=== PATIENT | male | born 1940 | race Caucasian/White ===

== ENCOUNTER 2016-12-20 12:48 | Inpatient (IN) | payer MEDICARE, MEDICAID ==
[~2016-12-20] VITALS: Ht 180.3 cm; Wt 75.7 kg
[~2016-12-20 12:48] MED LIST: ASPI1TAB PO; ATOR1TAB18 PO; CARV12.5 PO; CLOP75TA2 PO; CORE12.5 PO; FERR325T3 PO; FURO20TA2 PO; HYDR-4267 PO; ISOS40TASA PO; LANTINJ4 SC; PANT40TA2 PO; SERT50TA PO; WARF-23 PO
[2016-12-20] MEDS ORDERED: ACETAMINOPHEN TAB 650MG DOSE (2X325MG) PO PRN (15:30)
[2016-12-20] MEDS ORDERED: ONDANSETRON 4MG/2ML VIAL (J2405) IV PRN (15:30)
[2016-12-20 18:26] VITALS: BP 152/75
[2016-12-20 19:07] LABS: BASO % 0.2 % (0.0-1.0); EOS % 0.1 % (0.0-3.0); LARGE UNSTAINED CELL % 0.3 % (0.0-4.0); LYMPH # 0.2 K/mm3 (1.5-4.5); LYMPH % 2.8 % (24.0-44.0); MEAN CORPUSCULAR HEMOGLOBIN 32.6 pg (27.0-33.0); MEAN CORPUSCULAR HGB CONC 33.4 g/dl (32.0-36.5); MEAN CORPUSCULAR VOLUME 97.7 fl (80.0-96.0); MONO # 0.3 K/mm3 (0.0-0.8); MONO % 3.9 % (0.0-5.0); NEUTROPHILS # 5.9 K/mm3 (1.8-7.7); NEUTROPHILS % 92.6 % (36.0-66.0); PLATELET COUNT, AUTOMATED 124 k/mm3 (150-450); RED CELL DISTRIBUTION WIDTH 15.4 % (11.5-14.5); WHITE BLOOD COUNT 6.4 K/mm3 (4.0-10.0)
[2016-12-20 19:14] LABS: INR 1.52
[2016-12-20] MEDS ORDERED: FUROSEMIDE 100 MG/10 ML VIAL (J1940) IV ONE (19:15)
[2016-12-20] MEDS ORDERED: DEXTROSE 50% 50 ML SYRINGE IV PRN (19:30)
[2016-12-20] MEDS ORDERED: GLUCAGON FOR INJ 1 MG VIAL (J1610) SC PRN (19:30)
[2016-12-20] MEDS ORDERED: GLUCOSE 4 GM CHEW TABLET PO PRN (19:30)
[2016-12-20] MEDS ORDERED: FURO20TA2 PO (19:34)
[2016-12-20] MEDS ORDERED: MECL-68 PO (19:34)
[2016-12-20] MEDS ORDERED: GLIM4TAB PO (19:34)
[2016-12-20] MEDS ORDERED: BYDU1INJ SC (19:34)
[2016-12-20] MEDS ORDERED: ONDA4TAB6 PO (19:35)
[2016-12-20 19:38] LABS: ALBUMIN 3.2 GM/DL (3.2-5.2); ALBUMIN/GLOBULIN RATIO 0.84 (1.00-1.93); BILIRUBIN,TOTAL 0.8 MG/DL (0.2-1.0); CALCIUM LEVEL 7.6 MG/DL (8.8-10.2); CREATININE FOR GFR 3.33 MG/DL (0.70-1.30); GLOMERULAR FILTRATION RATE 19.4 (>42); MAGNESIUM LEVEL 2.2 MG/DL (1.8-2.4); POTASSIUM SERUM 4.5 MEQ/L (3.5-5.1); THYROXINE (T4) 7.6 UG/DL (4.5-12.0)
[2016-12-20] MEDS ORDERED: CARV25TA PO (19:39)
[2016-12-20] MEDS: HEPARIN SOD (PORCINE) 5000 UNITS/ML VIAL SC SCH (21:00)
[2016-12-20] MEDS ORDERED: HEPARIN SOD (PORCINE) 5000 UNITS/ML VIAL SQ SCH (21:00)
[2016-12-20] MEDS: **hydrALAZINE** 50 MG TAB PO SCH (21:01)
[2016-12-20] MEDS: MECLIZINE 25 MG TABLET PO SCH (21:02)
[2016-12-20] MEDS: HumaLOG INSULIN (NovoLOG) PER UNIT SC SCH (21:02)
[2016-12-20] MEDS: SENOKOT S TAB PO SCH (21:02)
[2016-12-20] MEDS: CARVedilol 12.5 MG TAB PO SCH (21:03)
[2016-12-20] MEDS: ISOSORBIDE DINITRATE 40 MG PO SCH (21:14)
[2016-12-20 21:26] VITALS: BP 153/82
[2016-12-20 22:04] LABS: OSMOLALITY URINE 449 MOSM/KG (500-800)
--- NOTE | 2016-12-20 22:24 | HPE ---
DATE OF ADMISSION: 12/20/2016 PRIMARY CARE PHYSICIAN: Dr. Deni Lo. CHIEF COMPLAINT: The patient was transferred from [facility] due to abnormal renal function. HISTORY OF PRESENT ILLNESS: Mr. Chaudhry is a 76-year-old male with multiple past medical history who transferred from [facility] due to abnormal renal function. The patient expressed that two weeks ago, was seen by Dr. oL who has started the patient on Bydureon weekly and the first dosage was administered on Thursday two weeks ago. At night, he started having nausea and vomiting which continues for two weeks. The patient also noticed last Thursday that he started having blood in his vomit, possibly secondary to a long history of vomiting. He also experienced fatigue and weakness all over his body. One of the patient's neighbors suggested that the patient be seen by his doctor again. The patient saw Dr. Lo on Thursday, December 17. The patient expressed at that time his weakness and fatigue was so bad that he could not walk. Dr. Lo recommended that the patient be admitted to the hospital. The patient denies having sick contacts. He also noticed that his urine output has decreased for the past two weeks. The patient denies fever; however, the patient has chills and night sweats. The patient denies syncope or seizure-type activity. At the [facility] the patient was diagnosed with acute kidney injury on chronic kidney disease stage III, and was thought that it was mostly secondary to prerenal due to side effect of Bydureon, which caused him to have vomiting and nausea, which led to volume depletion. No hydronephrosis or hydroureter was reported on the imaging that was performed at [facility]. However, the imaging suggested pancreatitis. However, lipase and amylase were not elevated. It was noted that the patient has proteinuria and hematuria at [facility]. The patient also had mild hyperkalemia and slightly low CO2 which was thought consistent with metabolic acidosis. Therefore, the patient was started on half-normal saline, and bicarbonate at 37 mL per hour, with close monitoring of cardiorespiratory due to low ejection fraction, and continued monitoring for urine output. At [place], urine electrolytes and urine protein over creatinine ratio was thought to qualifying him for proteinuria. The creatinine level at [place] was reported as between 3 to 3.1. The patient also had anemia which, according to documentation, could be related to renal disease. Also, according to the [facility] documentation, since the patient was on hydralazine, they have ordered antinuclear antibody test (VANDA), double-stranded deoxyribonucleic acid (DNA), antihistamine antibody, C3, C4, serum protein electrophoresis (SPEP) and urine protein electrophoresis (UPEP), and serum and urine free light chain, LDH, and peripheral smear and ANCA due to possible drug- induced lupus. Due to mild anemia and thrombocytopenia, they have ordered lactate dehydrogenase (LDH) and peripheral smear, and the results were pending. The patient was transferred to [facility] for nephrology followup. PAST MEDICAL HISTORY: 1. Type 2 diabetes mellitus. 2. Hypertension. 3. Coronary artery disease, status post coronary artery bypass graft (CABG) and stents. 4. History of pacemaker. 5. History of atrial fibrillation. 6. History of severe hyperlipidemia. 7. History of chronic kidney disease (CKD) stage III. 8. History of gastrointestinal (GI) bleeding. 9. Inferior wall myocardial infarction (RI) complicated by cardiogenic shock. 10. Peripheral vascular disease (PVD). 11. Ejection fraction about 30-35% which was done by Dr. Lo; however, no echo report has been sent from [place]. PAST SURGICAL HISTORY: 1. Coronary artery bypass graft (CABG). 2. Spinal fusion surgery. 3. History of esophagogastroduodenoscopy (EGD). ALLERGIES: No known drug allergies. HOME MEDICATIONS: - aspirin 81 mg by mouth daily - carvedilol 25 mg by mouth twice a day - Bydureon 2 mg subcutaneously every week - furosemide 20 mg by mouth daily - glimepiride 4 mg by mouth daily - hydralazine 50 mg by mouth twice a day - isosorbide dinitrate 40 mg by mouth twice a day - meclizine 25 mg by mouth twice a day - ondansetron 4 mg by mouth twice a day as needed for nausea SOCIAL HISTORY: At this time, the patient lives alone. The patient's about 7-1/2 years ago due to complications of cancer. The patient has one dog. The patient denies history of smoking or drinking alcoholic beverages. However, the patient expressed that his last drink was 60 years ago, and he reported he was drinking occasionally. The patient denies illicit drug use. The patient has traveled to [place]. The patient had two sons who have been lost due to [place] war. The patient lost one daughter due to driving under the influence (DUI). FAMILY HISTORY: The patient had one sister who is on dialysis due to end-stage renal disease. She about a year ago. The reason for her renal disease was uncontrolled hypertension. The patient has another sister. The patient's father at age 51 due to heart issues. The patient's mother at age 94 due to heart issues. REVIEW OF SYSTEMS: GENERAL: The patient denies fever, chills, night sweats, weight loss, weight gain. HEENT: The patient at this time denies acute vision or hearing changes. However, the patient expressed that for the past week to two weeks, the patient feels mild change of the vision and lightheadedness, especially after having multiple episodes of vomiting. The patient denies problems with chewing food or sinusitis. NECK: The patient denies lumps, bumps, or decreased range of motion of his neck. HEART: The patient denies chest pain, palpitations, racing or skipping heartbeat. LUNGS: The patient denies shortness of breath, coughing or wheezing. ABDOMEN: The patient denies abdominal pain, nausea, vomiting, diarrhea or constipation, melena, hematochezia, hemoptysis for the past 24 hours. However, before that, the patient had nausea and multiple vomiting per day for the past two weeks. NEUROLOGIC: The patient denies history of transient ischemic attack (TIA), cerebrovascular accident (CVA) or seizure-type activity. PHYSICAL EXAMINATION: VITAL SIGNS: Temperature 97, pulse 74, respiratory rate 18, blood pressure 152/75, pulse oximetry 95 on room air. GENERAL APPEARANCE: The patient was lying in bed in no acute distress. The patient was awake, alert, and oriented to person, place and time. HEENT: Normocephalic, atraumatic. Pupils are equal, reactive to light. Oral mucosa was moist. NECK: Soft, supple. No lymphadenopathy, no thyromegaly. The patient has mild elevation of jugular venous distention (JVD). HEART: Regular rate and rhythm. Normal S1, S2. ABDOMEN: Soft, nontender. Positive bowel sounds in all quadrants. EXTREMITIES: The patient has mild pitting edema in both lower extremities, +2 pulses in both lower extremities. Feet are warm. NEUROLOGIC: Cranial nerves II through XII are intact. No focal deficiencies. LABORATORY DATA: White blood cells 6.4, red blood cells 3.14, hemoglobin 10.2, hematocrit 30.7, MCV 97.7, MCH 32.6, MCHC 33.4, RDW 15.4, platelet count 124, neutrophils percentage 92.6, lymphocyte percentage 2.8, monocyte percentage 3.9, basophil percentage 0.1, eosinophil percentage 0.2, leukocyte percentage 0.3. PT 18.4, INR 1.52. Sodium 133, potassium 4.5, chloride 101, carbon dioxide 23, anion gap 9, BUN 49, creatinine 3.33, glomerular filtration rate 19.6, fasting glucose 313. Lactic acid 2.1. Calcium 7.6, magnesium 2.2. Total bilirubin 0.8, AST 49, ALT 119, alkaline phosphatase 83. Total creatine kinase 288, CK-MB 13.5, CK-MB relative index 4.68, troponin I 1.23. C-reactive protein 2.49. BNP pending. Total protein 7, albumin 3.2, lipase 139. TSH 1.15. Free T4 index 2.9. Thyroxine 7.6, T3 uptake 38. IMAGING: Chest x-ray is pending at this time. CT of chest without contrast, which was done on 12/17/2016, at [facility], indicated there is interstitial fibrotic change and heaviest fibrosis in the base, with a left pleural effusion, small lateral and posterior pleural plaque, and diaphragmatic plaque on the right and some mild cylindrical bronchiectasis changes. No definite acute infiltrate. Cardiomegaly with the left atrial and ventricle enlargement, dual-lead pacer, and no pericardial thickening or effusion. All of this is unchanged. Spine, rib, clavicles, scapula and sternum without acute fracture. There is a prior sternotomy, calcified aorta without aneurysm. No pathologic size adenopathy in mediastinum. CT abdomen and pelvis without contrast which was done on 12/17/2016, at [facility], which indicated there is evidence of inflammatory changes adjacent to the body tail of the pancreas, representing some pancreatitis without pseudocyst or abscess. No perforation/free air. Thick wall calcified rimmed cyst in the spleen, unchanged, and thin-walled lesion between the wall of the stomach and the tail of the pancreas that may be arising from the gastric wall. It appears unchanged for each of these lesions. Dependent gallstone and the kidney without acute finding. There is adrenal hyperplasia bilaterally. No splenomegaly. Vascular calcification of the aorta and branches without changes. There is aneurysmal dilation of the distal abdominal aorta to 3.7 cm in AP diameter, and this is unchanged from the previous study. Dextroconvex scoliosis with degenerative disc and facet changes and some hip arthritis. PA and lateral chest which was done on 12/19/2016, at [facility], which indicated cardiomegaly with underlying interstitial fibrosis, chronic calcified pleural plaque and pleural thickening and a small effusion. Chest x-ray which was done on 12/20/2016, at [facility] was compared with the 12/19/2016, and the CT of the chest which was done on 12/17/2016, at [facility], which indicated multiple pacer is again seen and unchanged. The aorta is mildly enlarged. There is diffuse interstitial fibrotic changes and some vascular redistribution with pulmonary venous hypertension, underlying fibrosis, mixed interstitial edema difficult to exclude, and suspecting some interstitial edema present. There is a small effusion on the lateral view and fluid in the fissure. Vascular congestion and interstitial edema appear greater than the day before. No other finding or changes were noticed. ASSESSMENT AND PLAN: 1. Acute kidney injury superimposed on chronic kidney disease (CKD). The patient has been diagnosed with stage III kidney disease at [place]. The patient's creatinine was between 3.1 and 3; however, today's lab work which was done at [facility] indicated elevation of the creatinine to 3.33. This could be secondary to pre azotemia (cardio-nephrotic effect since the patient has heart failure, reduced ejection fraction (30-35% based on the record from [place] which was done by Dr. Lo) versus azotemia (medications including furosemide). At this time, physical examination indicated possibility of hypervolemia; therefore, we administered one dose of Lasix 60 mg intravenous (IV) one time, and we will evaluate the patient's intake and output. we will also consult Dr. Medina. Also, we have ordered potassium random urine, sodium random urine, as well as total protein random urine and osmolarity urine, as well as creatinine random urine and chloride random urine, and the result is pending at this time. However, the patient had elevated urine creatinine which was done on 12/19/2016, and was 139.2, and elevated protein urine which was done 12/19/2016, which was 358. 2. Hyponatremia. This is possibly secondary to heart failure, reduced ejection fraction versus IV fluid that the patient has received during hospitalization at [place]. At this time, we administered one dose of Lasix 60 mg IV. We will monitor patient's sodium level. 3. Mild elevation of lactic acid. The patient is afebrile, and has normal level of white blood cells. This is possibly secondary to stress; however, we have ordered blood culture and the result is pending at this time. 4. Elevated troponin level. This is possibly secondary to acute on chronic kidney disease. The patient is asymptomatic at this time. The patient is on aspirin. We have ordered a chest x-ray. Result is pending at this time. Electrocardiogram (EKG) which was done on December 17 indicated sinus rhythm with a first-degree arteriovenous (AV) block and left ventricular hypertrophy. However, no ST changes was noted. We will recheck the cardiac marker for two more readings every eight hours. The patient is also on carvedilol. 5. History of atrial fibrillation. At this time, the patient's rate is controlled. The patient is on aspirin 81 mg by mouth daily, as well as Coreg 25 mg twice a day by mouth. The patient expressed that he was on warfarin; however, his commissions specialist (Dr. Lo) stop warfarin possibly secondary to history of gastrointestinal (GI) bleeding. 6. Hypertension. At this time, the patient is on Coreg, as well as hydralazine and isosorbide dinitrate, with the holding parameters. 7. Deep venous thrombosis (DVT) prophylaxis. 5000 subcutaneous twice a day. 8. Transaminitis. The patient today has elevated AST and ALT. However, based on documentation from [facility], the patient has normal level of AST and ALT on 12/17/2016. This could be secondary to cardiohepatic effect due to hypervolemia. At this time, we will monitor the patient's liver function. If transaminitis continues, the patient might require to have further evaluation including hepatic ultrasound. 9. Heart failure, reduced ejection fraction. The latest echocardiogram result that we have from [place] indicated reduced ejection fraction of about 30-35%, which was done by Dr. Lo. However, the date of this study is not indicated. We have ordered new echocardiogram and the result is pending at this time. At home, the patient was on furosemide; however, we have hold it and we have started the patient on Lasix at 60 mg IV one time. Also, the patient is on Coreg 25 mg by mouth twice a day. 10. History of gastrointestinal (GI) bleeding. The patient has anemia. However, hemoglobin and hematocrit levels today have increased compared to the lab which was done at the [facility]. I have ordered occult blood test and the result is pending at this time. This could be secondary to hypervolemia. We will continue to monitor patient for any abnormal symptoms. 11. Coronary artery disease. The patient is status post coronary artery bypass graft (CABG) and stent. The patient also has a history of pacemaker. At this time, we will continue patient on aspirin and beta cynthia. 12. Dizziness. The patient has a chronic history of dizziness. The patient is on meclizine 25 mg by mouth twice a day, which is the home dosage. 13. Diabetes: At home patient is on Glimepiride however we has stop this medication and have started him on sliding scale and consistent carb diet. My preceptor for this patient encounter was Dr. Tia Dumas. The preceptor was physically present in the building during the encounter and was fully available as needed. All aspects of the patient interview, examination, medical decision making process, and medical care plan development were reviewed and approved by the preceptor. The preceptor is aware and concurs with the plan as stated in the body of this note and will attest to such by his/her co-signature. MAGALY
[2016-12-20 23:59] VITALS: BP 138/76
[2016-12-21] MEDS ORDERED: SLF 3 ML SYR IV PRN (03:45)
[2016-12-21 04:31] VITALS: BP 130/74
[2016-12-21] MEDS: SLF 3 ML SYR IV SCH ×3 (05:00→21:57)
[2016-12-21 05:44] LABS: BASO % 0.1 % (0.0-1.0); EOS % 0.1 % (0.0-3.0); LARGE UNSTAINED CELL # 0.1 K/mm3 (0.0-0.4); LYMPH # 0.2 K/mm3 (1.5-4.5); LYMPH % 2.4 % (24.0-44.0); MEAN CORPUSCULAR HEMOGLOBIN 32.3 pg (27.0-33.0); MEAN CORPUSCULAR HGB CONC 33.5 g/dl (32.0-36.5); MEAN CORPUSCULAR VOLUME 96.3 fl (80.0-96.0); MONO # 0.4 K/mm3 (0.0-0.8); MONO % 4.8 % (0.0-5.0); NEUTROPHILS # 7.6 K/mm3 (1.8-7.7); NEUTROPHILS % 91.6 % (36.0-66.0); PLATELET COUNT, AUTOMATED 117 k/mm3 (150-450); RED CELL DISTRIBUTION WIDTH 15.8 % (11.5-14.5); WHITE BLOOD COUNT 8.3 K/mm3 (4.0-10.0)
[2016-12-21 06:06] LABS: ALBUMIN 2.9 GM/DL (3.2-5.2); ALBUMIN/GLOBULIN RATIO 0.83 (1.00-1.93); BILIRUBIN,TOTAL 0.7 MG/DL (0.2-1.0); CALCIUM LEVEL 7.8 MG/DL (8.8-10.2); CREATININE FOR GFR 3.08 MG/DL (0.70-1.30); GLOMERULAR FILTRATION RATE 21.2 (>42); MAGNESIUM LEVEL 2.2 MG/DL (1.8-2.4); POTASSIUM SERUM 4.1 MEQ/L (3.5-5.1); TOTAL PROTEIN 6.4 GM/DL (6.4-8.2)
[2016-12-21 07:36] VITALS: BP 126/69
--- NOTE | 2016-12-21 08:22 | REP ---
AP CHEST: 12/20/2016 at 07:37 PM. CLINICAL HISTORY: Dyspnea. COMPARISON: 12/20/2016, 12/19/2016; CT chest 12/17/2016. FINDINGS: A multi-lead pacer unchanged. Cardiomegaly noted. The aorta is tortuous and calcified. Sternotomy wires as before. There appears to be some improvement in the vascular congestion and interstitial edema from earlier today. Some of this may be related to technical differences in the examination, but nevertheless, there does appear to be some improvement. A small left effusion is noted. Calcified pleural plaques and pleural thickening along the right lateral chest. No other change. Signed by Stanislav Polanco MD 12/21/2016 10:37 A
[2016-12-21] MEDS: ISOSORBIDE DINITRATE 40 MG PO SCH ×2 (08:32→21:56)
[2016-12-21] MEDS: HEPARIN SOD (PORCINE) 5000 UNITS/ML VIAL SC SCH ×2 (08:33→21:55)
[2016-12-21] MEDS: MECLIZINE 25 MG TABLET PO SCH ×2 (08:33→21:57)
[2016-12-21] MEDS: CARVedilol 12.5 MG TAB PO SCH ×2 (08:33→21:56)
[2016-12-21] MEDS: **hydrALAZINE** 50 MG TAB PO SCH ×2 (08:33→21:56)
[2016-12-21] MEDS: ASPIRIN 81 MG ENTERIC TAB PO SCH (08:33)
[2016-12-21] MEDS: SENOKOT S TAB PO SCH ×2 (08:33→21:57)
[2016-12-21] MEDS: HumaLOG INSULIN (NovoLOG) PER UNIT SC SCH ×4 (08:34→21:00)
[2016-12-21] MEDS ORDERED: FUROSEMIDE 100 MG/10 ML VIAL (J1940) IV SCH ×2 (09:00→17:00)
--- NOTE | 2016-12-21 09:31 | REP ---
BILATERAL RENAL ULTRASOUND AND BLADDER ULTRASOUND: 12/20/2016. COMPARISON: CT 12/17/2016. CLINICAL HISTORY: Abnormal renal function. FINDINGS: Sonographic evaluation of the kidneys shows the right 12.7 x 5.8 x 5.2 cm. The left kidney measures 12 x 5.3 x 5.1 cm. Cortical echogenicity is the same or less than the adjacent liver, which may reflect normal early medical renal disease. There is cortical thinning and sinus lipomatosis related to that cortical atrophy. Similarly on the left, there is cortical thinning and sinus lipomatosis. No hydronephrosis, hydroureter, solid or cystic mass or perinephric fluid. I see no definite stone. The bladder is only minimally filled measuring 5.8 x 6 x 3 cm giving calculated volume of 54 mL. Ureteral jets could not be observed. No bladder wall mass, stone or other significant finding. IMPRESSION: 1. Bilateral kidney length is normal with cortical thinning and sinus lipomatosis noted consistent with atrophy. Cortical echogenicity is the same or slightly lower than the adjacent liver. This may be normal versus early medical renal disease. 2. No hydronephrosis, hydroureter, renal, ureteral stone, cyst or solid renal mass visible. 3. Limited evaluation of the bladder only partially filled for this examination with volume of 54 mL. No stone, bladder wall thickening or ureteral jets observed. Signed by Stanislav Polanco MD 12/21/2016 10:56 A
--- NOTE | 2016-12-21 10:29 | ECHO ---
DATE OF PROCEDURE: 12/21/2016 REFERRING PROVIDER: Dr. Tia Dumas LOCATION: Room 3212 REASON FOR ECHOCARDIOGRAM: Shortness of breath. 2D MEASUREMENT: IVS - 1.4 cm LV - 4.7 cm LVPW - 1.1 cm LA - 3.8 cm Aorta - 2.1 cm IVC - 2.7 cm DOPPLER MEASUREMENT: Peak velocity across the aortic valve - 1.4 m/s Peak velocity across the LVOT - 0.69 m/s Mitral E - 0.97 Maximum tricuspid valve velocity - 3.4 m/s 2D COMMENTS: 1. Normal left ventricular size and wall thickness but with a moderately depressed global left ventricular systolic function. The anterior septum, mid to apical region appeared to be akinetic as well as the mid and the apical portion of the anterior wall and the anterolateral wall. The estimated global left ventricular systolic ejection fraction is 35%. The basal portion of the septum and the anterior wall as well as the inferior wall seem to be lucian. 2. Subjectively, the left atrium appeared to be mildly enlarged. Normal right atrium. The right ventricle appeared to be normal in limited views. The right ventricular free wall was not well visualized. 3. The atrial septum appeared to be normal without evidence of defect or shunt. 4. Normal aortic root. 5. Trace pericardial effusion noted, no evidence of cardiac tamponade. 6. Mildly calcified aortic valve with normal leaflet excursion. Mildly calcified mitral annulus shows normal anterior mitral valve leaflet motion. Normal tricuspid valve. The pulmonic valve and proximal pulmonary artery branches were not well visualized. 7. The inferior vena cava appeared to mildly enlarged, central venous pressure is probably elevated. DOPPLER: It detects mild to moderate aortic regurgitation, mild mitral regurgitation, moderate tricuspid regurgitation and trace pulmonic regurgitation. The calculated pulmonic artery systolic pressure varies between 50-60 mmHg. Assessment of the left ventricular systolic function was limited. The patient appeared to have underlying atrial fibrillation but with paced beats. IMPRESSION: 1. Moderate global left ventricular systolic dysfunction with regional wall motion abnormalities consistent with history of ischemic cardiomyopathy. 2. Aortic valve sclerosis with mild to moderate aortic regurgitation but no aortic stenosis. 3. Mitral annulus calcification with mild mitral regurgitation. 4. Moderate tricuspid regurgitation with moderate to severe pulmonary hypertension. 5. Pacemaker wire artifact noted, probably a biventricular pacemaker. 6. This was compared with the last echocardiogram on 03/29/2015, left ventricular systolic function was then normal. MTDD
[2016-12-21 12:00] VITALS: BP 131/71
--- NOTE | 2016-12-21 12:55 | CR ---
DATE OF CONSULTATION: 12/21/2016 PRIMARY CATH LAB TECHNOLOGIST AND PRIMARY PHYSICIAN: Dr. Chad Lo REFERRING PROVIDER: Dr. Dumas REASON FOR CONSULT: Abnormal serum troponin. HISTORY OF PRESENT ILLNESS: 76-year-old male who was transferred from [facility] yesterday, , because of acute on chronic renal failure. He was found to have an abnormal serum troponin and cardiology consult was called. When I saw Mr. Niles Chaudhry this morning, he was in bed in no acute distress at rest. He denies any chest pain, shortness of breath or palpitations. He has been ambulating. He stated that he was started on a medication for his diabetes and for about two weeks he was having nausea and vomiting. Then, he went to the hospital for further evaluation. He denies any abdominal pain or chest pain as mentioned above. He has been doing well and he stated since in this hospital, he has also has been feeling fine and ambulating on the floor. He has no nausea, vomiting diarrhea, melena or hematemesis. He has no cough or hemoptysis. He denies any active bleeding. He has no focal manifestation. He gives past medical history positive for coronary artery disease with myocardial infarction, cardiogenic shock, percutaneous transluminal coronary angioplasty (PTCA)/multiple stents, and coronary artery bypass graft (CABG). He also was told in the past that his heart muscles were weak. He has a history of atrial fibrillation that has been chronic and persistent and in the past he was on Coumadin, but discontinued it because of severe bleed that required transfer to the [facility] where he had multiple blood transfusions. He also had history of hypertension, hyperlipidemia, diabetes mellitus, peripheral artery disease with right carotid endarterectomy, gastroesophageal reflux disease (GERD), and chronic kidney disease Stage III. His first labs on admission revealed elevated liver enzymes that are improving. There is no history of CVA, sudden cardiac , thyroid disorders or lung disease that he is aware of. Past surgical history is positive for coronary artery bypass graft, permanent pacemaker implantation, and surgery done on his spine. Home medications are aspirin 81 mg by mouth daily, carvedilol 25 mg by mouth twice a day, Bydureon 2 mg subcutaneous weekly, furosemide 20 mg by mouth daily, glimepiride 4 mg by mouth daily, hydralazine 50 mg by mouth twice a day, isosorbide dinitrate 40 mg by mouth twice a day, meclizine 25 mg by mouth twice a day, and ondansetron 4 mg by mouth twice a day as needed for nausea. Current medications are aspirin 81 mg by mouth daily, Humalog as directed, carvedilol 25 mg by mouth twice a day, hydralazine 50 mg by mouth twice a day, isosorbide dinitrate 40 mg by mouth twice a day, meclizine 25 mg by mouth twice a day, heparin subcutaneous 5000 units every 12 hours, Glucagon 1 mg subcutaneous as directed, glucose tablets 16 grams by mouth as directed, D50 25 mL IV as directed, Tylenol 650 mg every 4 hours as needed for mild pain or fever, ondansetron 4 mg every 6 hours as needed IV for nausea or vomiting and he also had received a dose of Lasix yesterday, 12/20/2016. Family history is positive for heart disease. Social History: The patient lives in the [facility] and he denies any smoking or ETOH abuse. He has no known drug allergies. On physical examination, the patient is alert and oriented, in no acute distress at rest. His last vital signs revealed a blood pressure of 126/69 with a pulse of 70, respirations 18 and his maximum temperature is 98.1 degrees Fahrenheit with an oxygen saturation of 92-98% on room air. He has a fluid balance so far for today of 890 mL. Examination of the head is atraumatic. Neck is supple. I could not appreciate any jugular venous distention (JVD). The lungs did not reveal any wheezing or crackles. The heart examination revealed normal S1 and S2 without gallops. The PMI is displaced inferiorly and laterally. There is no rub. I could not appreciate any murmurs. Abdomen is soft, nontender. Bowel sounds are present. Extremities reveal no pedal edema. Peripheral pulses are palpated. Neurological examination grossly is negative for focal deficit. Labs: BMP done today revealed a sodium of 135, potassium 4.1, chloride 103, CO2 26, BUN 51, creatinine 3.08, GFR 21.2, fasting glucose 201, and calcium 7.8. Serum magnesium is 2.2. Liver enzymes revealed a total bilirubin of 0.7, AST 32 , ALT 92, alkaline phosphatase 70, and total protein 6.4, albumin 2.9. Serum troponin was 1.23 on 12/20/2016 and today 12/21/2016 serum troponin is 1.52. BNP today is now 122. Serum for BMP is pending. Liver enzymes on admission here were mildly elevated at AST 49 and ALT 118 respectively. CBC revealed a WBC of 8.3, hemoglobin 9.0, hematocrit 26.9, and platelets 117,000. On admission, the CBC revealed a WBC of 6.4, hemoglobin 10.2, hematocrit 30.7 and platelets 124,000. PT 18.4 with an INR of 1.52. Urinalysis revealed +3 protein, +2 glucose, +1 blood, and trace ketones, RBCs also noted. Blood culture is pending. Chest x-ray on admission, 12/20/2016 revealed cardiomegaly, tortuous and calcified aorta and blunting of the left costophrenic angle. There is also increased markings. Renal ultrasound was done yesterday, 12/20/2016, and revealed no hydronephrosis, hydroureter, stones, cysts, or solid mass in the kidneys. Some atrophy of the kidneys were noted. The bladder was not well visualized, but no stone detected. Echocardiogram done this morning revealed a moderately depressed global left ventricular systolic dysfunction with regional wall motion abnormalities consistent with ischemic cardiomyopathy, mild to moderate aortic regurgitation, mild mitral regurgitation, moderate tricuspid regurgitation with moderately severe pulmonary hypertension. In 2014, left ventricular systolic function by echocardiogram was normal, done in this hospital. IMPRESSION: 1. Abnormal serum troponin in this 76-year-old male with extensive cardiac history, but with underlying acute kidney injury on chronic kidney disease. The patient is asymptomatic and is active and ambulating. The etiology of the elevated serum troponin is not quite clear. His medications will be reviewed and I will continue the same for now, on a beta cynthia as well as a baby aspirin. He was on a statin in the past, but he stated that he was told that he does not need it. He will benefit and I am going to repeat his lipid profile and liver enzymes and if the liver enzymes continue to improve, he should be on a statin. He also has underlying peripheral artery disease. I am not going to add Plavix or BRILINTA for this present time because of his anemia and history of severe bleed requiring multiple transfusions of packed red blood cells in the past. Further evaluation for his elevated serum troponin can be done as an outpatient upon discharge. He is not a good candidate at this present time for cardiac catheterization in view of his renal function. He is also asymptomatic. 2. Cardiomyopathy, most likely ischemic in nature and well compensated and will continue with the beta cynthia as well as the combination of long acting nitrate and the hydralazine. However, we need to be careful with the hydralazine in view of his underlying CAD. 3. Acute kidney injury on underlying chronic kidney disease and this is being addressed. 4. Anemia. He will need to be monitored. He also has a low platelet count and he is on subcutaneous heparin and he will also need to be monitored. 5. History of atrial fibrillation, chronic and persistent, but not on Coumadin, stopped because of severe bleeding requiring multiple blood transfusions. At that time, he stated that he was admitted and he was transferred to [place] and he was discharged to rehabilitation but not home. 6. Diabetes mellitus. This is being addressed. 7. Hypertension, under control. 8. Hyperlipidemia. In the past, the patient was on a statin. This will be reassessed while in the hospital. He would benefit. 9. History of permanent pacemaker implantation. No information available at this present time, even from patient. He has left his pacemaker card at home. We should try to get some information from Dr. Lo's office tomorrow, 12/22/2016. ADDENDUM: Electrocardiogram done on 12/20/2016 revealed ventricular pacemaker activity, intraventricular conduction defect (IVCD), and nonspecific ST-T abnormalities. It was a pleasure to participate in the care of Mr. Niles Chaudhry for his underlying cardiac condition. He appears to be stable from a cardiac point of view and will continue current management. MTDD
--- NOTE | 2016-12-21 15:00 | IPN ---
DATE OF SERVICE: 12/21/2016 The patient seen and examined. Reported improved respirations, improved dyspnea on exertion. Overnight cardiac enzymes were elevated. Consulted Dr. Mishra. Denies any chest pain, pressure or discomfort. Electrocardiogram (EKG) shows ventricular pacing. Report of aspiration much improved. Denies any nausea, vomiting or abdominal pain. Tolerating oral. No edema whatsoever in lower extremities. Denies any fever or chills. Vital Signs: Temperature 97.4, pulse 72, respirations 18, blood pressure 131/71, pulse oximetry 96% on room air. Laboratory: WBC 8.3, hemoglobin and hematocrit 9 over 26.9 and platelets 117. Chemistry with sodium 135, potassium 4.1, chloride 103, bicarbonate 26, BUN 51, creatinine 3, troponin 1.13 to 1.52 to 1.09. Physical Examination: General: The patient alert and oriented times three in no acute distress, comfortable. HEENT: Normocephalic, atraumatic. Neck positive for jugular venous distention (JVD). Pulmonary: Diminished breath sounds bilateral. Cardiac: Regular rate and rhythm. Normal S1, S2. Abdomen soft, obese, nontender. Positive bowel sounds. Extremities: No edema of bilateral lower extremities. Assessment and Plan: This is a 76-year-old male patient with underlying medical history of ischemic cardiomyopathy with ejection fraction of 30-35%, type 2 diabetes, coronary arterial disease with coronary artery bypass graft (CABG) and stent, hypertension, pacemaker, atrial fibrillation, dyslipidemia, chronic kidney disease (CKD) stage III, history of gastrointestinal (GI) bleed, myocardial infarction ([place]) with cardiogenic shock, peripheral vascular disease, transferred from [facility] for acute on chronic renal failure as well as acute congestive heart failure (CHF) exacerbation with systolic dysfunction. Problems: 1. Acute on chronic renal failure likely cardiorenal. Kidney function improved with Lasix. Nephrology consulted. Followup urine studies. Ultrasound renal appreciated. Continue to monitor electrolytes. Strict ins and outs and daily weight. 2. Acute on chronic systolic heart failure. Consulted cardiology. Echo appreciated. Ejection fraction 35%. Trend cardiac enzymes. Strict ins and outs and daily weight. Continue Lasix 60 IV twice a day. Continue aspirin and beta blockers. Monitor blood pressure. 3. Elevated troponin likely secondary to acute congestive heart failure exacerbation in the setting of renal insufficiency and severe ischemic cardiomyopathy. Consulted Dr. Mishra. Given underlying anemia and GI bleed history, Dr. Mishra believes that patient likely will not tolerate escalation of antiplatelets or anticoagulation. Will keep the patient on aspirin and beta blockers. Continue diuresis. Telemetry close monitor. Monitor blood pressure. Monitor hemoglobin and hematocrit, transfuse as needed. Follow up cardiology recommendation. Echo is appreciated. Cardiac enzymes have peaked and trending down. 4. History of atrial fibrillation, currently the patient is ventricular paced on telemetry. Continue beta blockers. Anticoagulation has been discontinued for GI bleed. 5. Hypertension. Continue hydralazine, Coreg, isosorbide dinitrate with holding parameters. Continue to monitor. 6. Dyslipidemia. Restarting statin once lipid function has improved. 7. Diabetes. Insulin as per protocol. Follow finger sticks. 8. Peripheral vascular disease. Continue aspirin. 9. Anemia. Monitor hemoglobin and hematocrit. 10. History of GI bleed. If patient's anemia worsens, will consider further workup. 11. Deep vein thrombosis (DVT) prophylaxis. Heparin subcutaneous. DISPOSITION: Pending physical therapy, clinical improvement, cardiology and nephrology followup.
[2016-12-21 16:00] VITALS: BP 144/72
[2016-12-21 20:31] VITALS: BP 136/68
[2016-12-21] MEDS: POTASSIUM CHLORIDE 10 MEQ SR TABLET PO SCH (21:59)
[2016-12-22 00:50] VITALS: BP 133/68
--- NOTE | 2016-12-22 01:03 | ECGEPIP ---
Stationary ECG Study [facility] Test Date: 2016-12-20 Pat Name: PRESTON SALCEDO Department: PCU Room: [place] [address] Gender: M Instructor Of Sociology: SPEEDY : 1940 Requested By: JYOTSNA SRINIVASAN Order Number: [id number] Reading MD: Sarwat Mishra Measurements Intervals [place] Rate: 82 P: -9 SD: 229 QRS: -2 QRSD: 174 T: 163 QT: 463 QTc: 543 Interpretive Statements ELECTRONIC VENTRICULAR PACEMAKER Last tracing on 03/18/2015 at 17:11:52, there is now artifact in the anterolateral leads otherwise no significant changes Electronically Signed On 12-22-2016 1:03:27 EDT by Sarwat Mishra
--- NOTE | 2016-12-22 01:05 | ECGEPIP ---
Stationary ECG Study [facility] Test Date: 2016-12-21 Pat Name: PRESTON SALCEDO Department: Room: [place] [address] Gender: M [employer] Software Developer: BETH : 1940 Requested By: JYOTSNA SRINIVASAN Order Number: [id number] Reading MD: Sarwat Mishra Measurements Intervals [place] Rate: 85 P: 40 VA: 274 QRS: -11 QRSD: 203 T: 154 QT: 484 QTc: 576 Interpretive Statements ELECTRONIC VENTRICULAR PACEMAKER ABNORMAL RHYTHM ECG Compared to the last 2 tracings in the system, no significant changes Electronically Signed On 12-22-2016 1:05:02 EDT by Sarwat Mishra
[2016-12-22 04:34] VITALS: BP 132/70
[2016-12-22 05:04] LABS: BASO % 0.2 % (0.0-1.0); EOS # 0.1 K/mm3 (0.0-0.50); EOS % 0.7 % (0.0-3.0); LARGE UNSTAINED CELL # 0.1 K/mm3 (0.0-0.4); LARGE UNSTAINED CELL % 0.8 % (0.0-4.0); LYMPH # 0.6 K/mm3 (1.5-4.5); MEAN CORPUSCULAR HEMOGLOBIN 32.5 pg (27.0-33.0); MEAN CORPUSCULAR HGB CONC 33.1 g/dl (32.0-36.5); MEAN CORPUSCULAR VOLUME 98.2 fl (80.0-96.0); MONO # 0.5 K/mm3 (0.0-0.8); MONO % 6.8 % (0.0-5.0); NEUTROPHILS # 6.7 K/mm3 (1.8-7.7); NEUTROPHILS % 84.5 % (36.0-66.0); PLATELET COUNT, AUTOMATED 131 k/mm3 (150-450); RED CELL DISTRIBUTION WIDTH 16.6 % (11.5-14.5); WHITE BLOOD COUNT 7.9 K/mm3 (4.0-10.0)
[2016-12-22 05:26] LABS: ALBUMIN 3.1 GM/DL (3.2-5.2); ALBUMIN/GLOBULIN RATIO 0.79 (1.00-1.93); BILIRUBIN,TOTAL 0.7 MG/DL (0.2-1.0); CALCIUM LEVEL 8.2 MG/DL (8.8-10.2); CREATININE FOR GFR 3.26 MG/DL (0.70-1.30); GLOMERULAR FILTRATION RATE 19.9 (>42); MAGNESIUM LEVEL 2.1 MG/DL (1.8-2.4); POTASSIUM SERUM 3.9 MEQ/L (3.5-5.1)
[2016-12-22] MEDS: SLF 3 ML SYR IV SCH ×3 (05:37→21:21)
[2016-12-22] MEDS: HumaLOG INSULIN (NovoLOG) PER UNIT SC SCH ×4 (07:30→21:00)
[2016-12-22 08:00] VITALS: BP 146/88
[2016-12-22] MEDS: **hydrALAZINE** 50 MG TAB PO SCH ×2 (08:45→21:20)
[2016-12-22] MEDS: HEPARIN SOD (PORCINE) 5000 UNITS/ML VIAL SC SCH ×2 (08:45→21:19)
[2016-12-22] MEDS: ISOSORBIDE DINITRATE 40 MG PO SCH ×2 (08:45→21:20)
[2016-12-22] MEDS: POTASSIUM CHLORIDE 10 MEQ SR TABLET PO SCH (08:46)
[2016-12-22] MEDS: CARVedilol 12.5 MG TAB PO SCH ×2 (08:46→21:20)
[2016-12-22] MEDS: SENOKOT S TAB PO SCH ×2 (08:46→21:20)
[2016-12-22] MEDS: MECLIZINE 25 MG TABLET PO SCH ×2 (08:46→21:20)
[2016-12-22] MEDS: ASPIRIN 81 MG ENTERIC TAB PO SCH (08:46)
[2016-12-22 12:00] VITALS: BP 139/75
[2016-12-22] MEDS: TORSEMIDE 20 MG TAB PO SCH (12:01)
--- NOTE | 2016-12-22 12:11 | CR ---
DATE OF CONSULTATION: 12/21/2016 REQUESTING PHYSICIAN: Dr. Tia Dumas. CONSULTING PHYSICIAN: Dr. Medina. REASON FOR CONSULTATION: Management of acute kidney injury superimposed on chronic kidney disease. CHIEF COMPLAINT: The patient was transferred from [facility] yesterday for worsening renal function. HISTORY OF PRESENT ILLNESS: Mr. Niles Chaudhry is a 76-year-old male with a past medical history of coronary artery disease, ischemic cardiomyopathy, hypertension, diabetes mellitus type 2, with proteinuria secondary to diabetic nephropathy. The patient was last seen by me in nephrology office in December 2015, when he was referred at that time for worsening renal function. His best baseline creatinine is around 1.6. When he was seen by me last year in the office, his creatinine was around 2.2. The patient has a history of cardiogenic shock in July 2014, which was secondary to ischemia, and at that time, the patient got a percutaneous coronary intervention (PCI) to the saphenous vein graft to diagonal branch. The patient required Impella device after the procedure. He also got the contrast during that procedure, so patient went into acute renal failure during that hospitalization secondary to a combination of cardiogenic shock and intravenous (IV) contrast. However, the patient did not require any hemodialysis. The patient's renal function stabilize at around chronic kidney disease stage III. However, the patient was lost to followup. He has not seen me in the clinic for the last one year. Again, this time the patient has been transferred from [facility] to our facility for worsening renal function. As per records and explained by the patient, he was recently started on Bydureon weekly injection. He just got one injection and one day after he got the injection, he started getting a lot of nausea and vomiting. He was dehydrated. He was unable to keep any food down. He was seen by Dr. Lo and later on admitted to the hospital for dehydration. He was also found to have acute renal failure with a creatinine of around 3 to 3.1 during that admission. The patient was started on intravenous (IV) bicarbonate fluid and, because of proteinuria, the initial workup including antinuclear antibody test (VANDA), antinuclear antibody test (VANDA), double-stranded deoxyribonucleic acid (DNA), C3, C4, serum protein electrophoresis (SPEP) and urine protein electrophoresis (UPEP) were sent from [facility]. The patient was transferred to our facility yesterday because of no improvement in his renal function. His creatinine was 3.3 on admission. On arrival, the patient was found to be in fluid overload with a lactic acid of 2.1. The patient was started on IV Lasix. The patient had a very good urine output with the IV Lasix administration, and I see a slight improvement in his creatinine from 3.3 to 3 today morning. Nephrology service was called for further help in the management of acute renal failure in this patient. PAST MEDICAL HISTORY: 1. Diabetes mellitus type 2 with diabetic nephropathy. 2. Hypertension. 3. Coronary artery disease. 4. Ischemic cardiomyopathy with left ventricular ejection fraction around 30% to 35%. 5. Gastroesophageal reflux disease. 6. Chronic kidney disease stage III with baseline creatinine known in our office as 1.6, and creatinine last year in December 2015, was 2.2. 7. History of gastrointestinal (GI) bleed. 8. Hyperlipidemia. PAST SURGICAL HISTORY: 1. Coronary artery bypass grafting. 2. History of stent in July 2014, and patient was in cardiogenic shock. He got percutaneous coronary intervention (PCI) to saphenous vein graft to diagonal branch, and he got a bare-metal stent at that time. The patient also needed Impella device during that hospitalization. 3. History of spine surgery. 4. Status post pacemaker placement in 2014, as well. ALLERGIES: No known drug allergies. MEDICATIONS: On transfer to our hospital: - aspirin 81 mg by mouth daily - Coreg 25 mg by mouth twice a day - Bydureon 2 mg subcutaneous every week; he only got one dose and he got sick - Lasix 20 mg by mouth daily - glimepiride 4 mg by mouth daily - hydralazine 50 mg by mouth twice a day - isosorbide dinitrate 40 mg by mouth twice a day - meclizine 25 mg twice a day - Zofran 4 mg as needed for nausea FAMILY HISTORY: No significant family history of end-stage renal disease requiring hemodialysis. SOCIAL HISTORY: The patient lives alone. The patient denies any smoking or illicit drug abuse or alcohol abuse. REVIEW OF SYSTEMS: CONSTITUTIONAL: The patient denies any fever, chills, rigors or weight loss. EYES: He denies any blurry vision or double vision. ENT: He denies any dysphagia, odynophagia, ear discharge. CARDIOVASCULAR: Patient reports extensive cardiac history, but he denies chest pain, palpitations. RESPIRATORY: Patient denies any shortness of breath, wheezing or coughing. GASTROINTESTINAL (GI): Patient reports recent nausea, vomiting, diarrhea, decreased appetite and dehydration after getting Bydureon injection before being hospitalized at [facility]. GENITOURINARY (): He denies any dysuria, hematuria. CENTRAL NERVOUS SYSTEM (LINUX SYSTEMS ANALYST): The patient denies any hospital course of strokes or seizures. PSYCHIATRIC: He denies any depression or anxiety. SKIN: He denies any rashes or ulcers. HEMATOLOGIC/ONCOLOGIC: The patient denies any easy bruising or recent bleeding. ENDOCRINE: Patient reports history of diabetes. He denies any history of hyperthyroidism or hypothyroidism. All other review of systems is negative. PHYSICAL EXAMINATION: GENERAL: The patient is awake, alert, and oriented times three lying in bed in no apparent distress. VITAL SIGNS: This morning when I saw the patient, temperature 97 degrees Fahrenheit, blood pressure 126/69, pulse 77, respiratory rate of 18, saturating 92% on room air. Intake and output: Urine output recorded yesterday was 175 mL. Urine output recorded so far today since overnight is 3300 mL. Weight in the bed scale is 80.9 kg. HEAD/NECK: Extraocular muscles intact. Pupils equal, round, and reactive to light. Mucous membranes are moist. Neck is supple. There is significantly elevated jugular venous distention (JVD). CARDIOVASCULAR: S1, S2. Irregular heart rate. No murmur, rub, or gallop. The patient has a midline old sternotomy scar, and the patient has a left-sided automatic implantable cardioverter defibrillator (AICD) as well. RESPIRATORY: Chest is clear to auscultation bilaterally. Bilateral equal air entry. No rales or rhonchi. ABDOMEN: Soft, positive bowel sounds. Nontender. No ascites. No organomegaly. EXTREMITIES: No clubbing or cyanosis. Pulses are 2+. CENTRAL NERVOUS SYSTEM (LINUX SYSTEMS ANALYST): No focal neurological deficit. Power is 5/5 in all extremities. SKIN: No rashes or ulcers. PSYCHIATRIC: Normal mood and affect. LABORATORY DATA: CBC showed WBC 8.3, hemoglobin is 9, platelets of 117. INR is 1.5. Urinalysis showed 3+ proteins, 2+ glucose. Negative nitrite. Negative leukocyte esterase. Urine random protein is 180. Random sodium is 39. BMP showed sodium 135 which is better than yesterday. It was 133 yesterday. Potassium 4.1, chloride 103, bicarbonate 26, BUN 51, creatinine is 3. It was 3.3 yesterday. GFR 21. Lactate is normal at 1.9 now. Calcium 7.8, magnesium 2.2. Troponin was 1.5. Repeat one is 1.09. BNP is 922. Albumin is 2.9. MICROBIOLOGY: Blood cultures are negative so far. IMAGING: A chest x-ray done yesterday showed cardiomegaly. There was some improvement in vascular congestion and interstitial edema. Renal ultrasound showed bilateral kidneys' length was normal. No hydronephrosis, stones, cysts, or masses were seen. CURRENT INPATIENT MEDICATIONS: The patient's inpatient medications include: - Tylenol as needed - aspirin 81 mg daily - Coreg 25 mg by mouth twice a day - Senokot one tablet twice a day - Lasix 60 mg IV twice a day - hydralazine 50 mg twice a day - insulin lispro sliding scale - isosorbide 40 mg by mouth twice a day - meclizine 25 mg twice a day - Zofran 4 mg as needed - potassium chloride 40 mEq daily which was started by me today ASSESSMENT: A 76-year-old male with past medical history of diabetes mellitus type 2 with diabetic nephropathy, coronary artery disease with ischemic cardiomyopathy, chronic kidney disease stage III with a baseline creatinine of around 2.2 as of 12/2015, recently started Bydureon which caused, nausea, vomiting, diarrhea and dehydration. The patient had transferred to [facility] yesterday because of acute kidney injury superimposed on chronic kidney disease and elevated troponins. PLAN: 1. Acute kidney injury superimposed on chronic kidney disease stage III: The patient's baseline creatinine is 2.2 as of last year. Acute kidney injury initially was most likely secondary to dehydration and nausea and vomiting after starting Bydureon. However, clinically when the patient arrived yesterday, he was overloaded. He was started on Lasix injections. The patient made around three liters of urine so far. His creatinine is trending down, so acute kidney injury was most likely cardiorenal. I will continue the Lasix at this time. I have also added the potassium chloride 40 mEq by mouth daily to prevent hypokalemia. 2. Hyponatremia: It is most likely hypervolemic hyponatremia. Sodium was 133 on inpatient. It is 135 today, which is improving with diuresis. Continue the diuretics at this time. 3. Proteinuria: When patient was seen by me last year, he had significant microalbuminuria. However, according to the random protein creatinine, he has around 2 grams of proteinuria, which I think is most likely secondary to diabetic nephropathy. However, his initial auto-immune workup has already been sent at [facility]. I would just follow the labs from there. I would not repeat the testing again. 4. Elevated troponin levels. The patient has a history of ischemic cardiomyopathy, history of CABG in the past, history of cardiogenic shock in the past requiring Impella device. Continue current dose of Coreg, isosorbide and hydralazine. Continue the diuretics. Anti-platelet therapy is as per cardiology. Rest of the management is as per cardiology recommendations. 5. Diabetes mellitus type 2. Continue the insulin sliding scale, and the patient can be restarted on his home dose of glimepiride 4 mg by mouth daily. Avoid Bydureon in this patient. He could not tolerate Bydureon. He only got one dose and after that he developed nausea and vomiting. Avoid metformin in this patient as well. 6. Acute decompensated systolic congestive heart failure. The patient's latest echo shows an ejection fraction of around 35%. Continue the diuretics at this time. Continue to monitor daily intake and output. Thank you for involving us in the care of this patient. We shall be happy to follow the patient along with you tomorrow morning. The plan of care was discussed with the hospitalist, Dr. Tia Dumas.
--- NOTE | 2016-12-22 12:13 | IPN ---
DATE: 12/22/2016 Mr. Chaudhry is seen on morning rounds, he is telling me that he feels comfortable and would like to go home. He adamantly denies any chest discomfort or shortness of breath. Based on his description he actually came to the hospital because of 2 weeks of nausea and vomiting. He believes that it is related to administration Bydureon that he received recently. Vital signs: Blood pressure 132/70, heart rate has been 70s and 80s. He is afebrile. Saturation 96% on room air. Reviewing his telemetry strips it looks to me that he is in sinus rhythm with ventricular pacing. His fluid balance yesterday was documented 2700 negative, weight is 77.9 kg. He is not alert and oriented, appropriate. His JVP does not look up. Lungs are clear to auscultation with good air movement. Heart: Exam reveals regular rhythm with paradoxically splitting second heart sound, I do not appreciate any murmur. Abdomen is soft. No tenderness. No rebound tenderness. There is approximately 1+ peripheral edema around ankles. LABORATORY: Basic metabolic panel potassium 4.5, BUN 49, creatinine 3.3 for GFR 19 and glucose 313, normal liver function test. Troponin I is 0.23 from actually 2 days ago and has come down to 1.09 yesterday afternoon and albumin is 3.1. ASSESSMENT/PLAN: Mr. Chaudhry is a rather complicated patient from cardiac perspective he has a history of coronary artery bypass surgery more than 10 years ago and subsequent coronary intervention in 2014, it looks like twice. I reviewed the records from Dr. Lo in the chart and even though they provide some insight I was not able to get an overall good impression about the patient's history. Nevertheless, the patient adamantly refuses any consideration of stronger anticoagulation claiming that in 2014 he almost bled to when he was started on Coumadin. Based on his understanding he had GI evaluation that did not reveal any obvious bleeding source. Consequently, especially because he had no chest discomfort and his cardiac enzymes are improving I think we will continue medical management, he will need further outpatient evaluation. According to the patient he just stress test about 3 or 4 months ago that did not reveal any ischemia. As far as congestive heart failure is concerned, he has ischemic cardiomyopathy with moderate LV systolic dysfunction still appears mildly volume overloaded but he has being diuresed successfully. He has stage IV renal insufficiency and the creatinine remains approximately stable. I am not aware of what his baseline creatinine is. He is on hydralazine and isosorbide which seems to be appropriate choices considering the degree of renal dysfunction. He is also on a good dose of beta-cynthia. Coreg 25 mg twice a day. From my perspective I do not have any strong objections from the patient leaving the hospital within next 24 hours provided he can ambulate without any discomfort or significant dyspnea, but I have to stress and he needs early outpatient followup.
[2016-12-22 16:00] VITALS: BP 172/87
--- NOTE | 2016-12-22 17:59 | IPN ---
DATE: 12/22/2016 The patient is comfortable with only minimal dyspnea, denies any chest pain, pressure or discomfort. Denies any abdominal pain, tolerating diet. Able to ambulate, almost back to baseline. VITAL SIGNS: Denies any fevers, chills, coughing, nausea, vomiting, diarrhea. Temperature 97.8, pulse 78, respirations 19, blood pressure 172/87, pulse oximetry 97% on room air. LABORATORY: White blood count (WBC) 7.9, hemoglobin and hematocrit 9.7/29.3, platelets 131. Chemistry: Sodium 141, potassium 3.9, chloride 104, bicarbonate 29, BUN 57, creatine 3.36. PHYSICAL EXAMINATION: GENERAL: The patient alert and oriented times three in no acute distress. HEENT: Normocephalic, atraumatic. PULMONARY: Bilateral clear to auscultation. CARDIAC: Regular rate and rhythm. Normal S1, S2. ABDOMEN: Soft, nontender. Positive bowel sounds. EXTREMITIES: No edema in bilateral lower extremities. ASSESSMENT AND PLAN: This is a 76-year-old male patient who has underlying medical history of ischemic cardiomyopathy, ejection fraction (EF) of 30 to 35%, type 2 diabetes, coronary arterial disease with coronary artery bypass graft (CABG) and stents, hypertension, pacemaker, atrial fibrillation, dyslipidemia, chronic kidney disease (CKD) stage IV, history of gastrointestinal (GI) bleed, myocardiac infarction, cardiogenic shock, peripheral vascular disease, transferred from [facility] with acute on chronic renal failure, as well as acute congestive heart failure (CHF) exacerbation with systolic dysfunction. PROBLEMS: 1. Acute on chronic renal failure, likely cardiorenal kidney function. Consulted nephrology, given Lasix for diuresis. Ultrasound we appreciated. Monitor electrolytes. Strict input and output and daily weight. 2. Acute on chronic systolic heart failure. The patient has a history of ischemic cardiomyopathy. Cardiology consulted. Further records have been requested. Ejection fraction of 35%. Echocardiogram appreciated. Telemetry monitoring. Strict input and output, daily weight. Diuresis. Initially given IV Lasix. Currently, switched to torsemide. Supplement electrolytes. Aspirin and beta blockers. Statin has been added. Monitor blood pressure. Will consider starting nitrates and hydralazine. Blood pressure continues to be elevated. 3. Elevated troponin, likely secondary to acute congestive heart failure (CHF) exacerbation in the setting of renal insufficiency and severe ischemic cardiomyopathy. Consulted cardiology, Dr. Mishra and Dr. Hou. The patient is adamant about not getting further anticoagulation or stronger antiplatelet. As per the patient, two years ago the patient had an episode of severe gastrointestinal (GI) bleed, in which the patient almost and the patient is adamant about no more, does not want to escalate antiplatelet or anticoagulation therapy. Continue beta blockers, aspirin, continue diuresis, telemetry monitoring, trend cardiac enzyme. Echocardiogram is appreciated. 4. History of atrial fibrillation. The patient is currently ventricular paced. Telemetry, beta blockers. Refused anticoagulation due to gastrointestinal (GI) bleed. 5. Hypertension. Continue hydralazine, Coreg, isosorbide dinitrate with holding parameters. Continue to monitor. 6. Dyslipidemia. Continue statin. 7. Diabetes. Insulin per protocol. Followup fingersticks. 8. Peripheral vascular disease. Continue aspirin. 9. Anemia. Followup hemoglobin and hematocrit. 10. History of gastrointestinal (GI) bleed. Followup hemoglobin and hematocrit. The patient refused any stronger anticoagulation. 11. Deep vein thrombosis (DVT) prophylaxis, heparin subcutaneously. DISPOSITION PLANNING: Pending physical therapy, clinical improvement. The case discussed with Dr. Hou. If kidney function remains stable and the patient passes physical therapy, potential discharge in the next day or two.
[2016-12-22 20:00] VITALS: BP 157/86
--- NOTE | 2016-12-22 20:55 | IPN ---
DATE: 12/22/2016 SUBJECTIVE: The patient was seen and examined at the bedside today in the morning. He was sitting on the sofa today. He did not have any active complaints. He feels much better. He is afebrile. Hemodynamically stable. The patient had good urine output with the Lasix dose. He is almost 500 mL negative today as per intake and output. REVIEW OF SYSTEMS: The patient denies any fever, chills, rigors, headache, nausea, vomiting, chest pain, shortness of breath, pain in abdomen, constipation or diarrhea. The rest of the review of systems is negative. OBJECTIVE: Vital signs temperature is 97.7 degrees Fahrenheit. Blood pressure is 146/88, pulse is 87, respiratory rate of 17, saturating 96% on room air. Intake and output: Urine output recorded as 3.6 liter yesterday, 2.9 liter so far today since overnight. Weight on the bed scale is 77.9 kg. PHYSICAL EXAMINATION: GENERAL: The patient is awake, alert and oriented times three. Sitting on the sofa. No apparent distress. HEAD/NECK: Extraocular muscles intact. Pupils equally round and reactive to light. Mucous membranes are moist. Neck is supple. There is slightly elevated JVD. CARDIOVASCULAR: S1, S2, irregular heart rate. No murmur, rub or gallop. The patient had a midline old sternotomy scar and he has a left-sided automatic implantable cardioverter-defibrillator (AICD)/[pacemaker as well. RESPIRATORY: Chest is clear to auscultation bilaterally. Bilateral equal air entry. No rales or rhonchi. ABDOMEN: Soft. Positive bowel sounds. Nontender. No ascites. No organomegaly. EXTREMITIES: No clubbing or cyanosis. Pulses are 2+. No edema of the bilateral lower extremities. CENTRAL NERVOUS SYSTEM: No focal neurological deficit. Power is 5/5 in extremities. SKIN: No rashes or ulcers. LABORATORY REVIEW. CBC showed a WBC of 7.9, hemoglobin 9.7, platelets of 131, BNP showed sodium 141, potassium 3.9, chloride 104, bicarbonate 29, BUN 57, creatinine is 3.2, it was 3 yesterday. Calcium is 8.2. Albumin 3.1. CURRENT MEDICATIONS: The patient medications are all reviewed by me. His IV Lasix has been stopped. The patient has been started on torsemide 20 mg by mouth daily and by mouth potassium dose has been decreased to 20 mEq by mouth daily. She has been started on Lipitor 20 mg at bedtime. There is no other change in the medications today. ASSESSMENT: 76-year-old male with past medical history of diabetes mellitus, type 2, with diabetic nephropathy, coronary artery disease with ischemic cardiomyopathy, history of cardiogenic shock in the past, chronic kidney disease , stage 3 with a baseline creatinine of around 2.2 as of last year in December 2015 when I saw him, but recently his creatinine was around 3 to 3.1. The patient was transferred to [facility] because of acute kidney injury superimposed on acute on chronic kidney disease, and elevated troponins. PLAN: 1. Acute kidney injury superimposed on chronic kidney disease, stage III. The patient's baseline creatinine was 2.2 last year. However, as of transfer records , his creatinine has been around 3. The patient's creatinine bumped up because of aggressive diuresis in the last two days. I have stopped the IV Lasix and switched the patient on by mouth torsemide. 2. Hyponatremia. It was hypervolemic hyponatremia. Sodium level has improved to 141 with diuresis. 3. Proteinuria. The patient most likely has diabetic nephropathy causing proteinuria. However, autoimmune workup was also ordered at [facility]. I have requested the labs from [facility] today morning. 4. Elevated troponins. The patient has history of ischemic cardiomegaly. History of CABG in the past. History of cardiogenic shock in the past requiring Impella device, which caused acute renal failure in 2014. Continue current dose of Coreg , isosorbide, hydralazine, and antiplatelet therapy as per cardiology. The patient is adamant about not escalating his antiplatelet or anticoagulation therapy because of his GI bleed in the past. 5. Diabetes mellitus type 2. Continue insulin sliding scale. The patient was on glimepiride at home, which can be restarted before discharge. He is not a candidate for angiotensin-converting enzyme (SHANTHI) inhibitors at this time because of advanced chronic kidney disease (CKD). 6. Acute decompensated systolic congestive heart failure. The patient ejection fraction (EF) is around 35%. The patient was diuresed with IV diuretics for two days. His volume status is optimized. I started the patient on torsemide 20 mg by mouth daily. The dose will be adjusted as needed tomorrow morning. DISCHARGE PLANNING: The patient creatinine has been stable around 3. I think his CKD has progressed at this time. The patient is otherwise hemodynamically stable and asymptomatic. We should be able to discharge him home within a day or two and he needs to followup at nephrology clinic within two weeks after discharge from the hospital. MAGALY
[2016-12-22] MEDS ORDERED: ATORVASTATIN 20 MG TAB PO SCH (21:00)
[2016-12-23] VITALS: BP 119/61
[2016-12-23 04:00] VITALS: BP 141/74
[2016-12-23] MEDS: SLF 3 ML SYR IV SCH (05:05)
[2016-12-23 05:23] LABS: BASO % 0.2 % (0.0-1.0); EOS # 0.1 K/mm3 (0.0-0.50); EOS % 1.8 % (0.0-3.0); LARGE UNSTAINED CELL # 0.1 K/mm3 (0.0-0.4); LARGE UNSTAINED CELL % 1.6 % (0.0-4.0); LYMPH # 0.6 K/mm3 (1.5-4.5); MEAN CORPUSCULAR HEMOGLOBIN 32.2 pg (27.0-33.0); MEAN CORPUSCULAR VOLUME 97.3 fl (80.0-96.0); MONO # 0.5 K/mm3 (0.0-0.8); MONO % 9.9 % (0.0-5.0); NEUTROPHILS # 4.1 K/mm3 (1.8-7.7); NEUTROPHILS % 76.5 % (36.0-66.0); PLATELET COUNT, AUTOMATED 131 k/mm3 (150-450); RED CELL DISTRIBUTION WIDTH 16.3 % (11.5-14.5); WHITE BLOOD COUNT 5.4 K/mm3 (4.0-10.0)
[2016-12-23 05:47] LABS: ALBUMIN/GLOBULIN RATIO 0.83 (1.00-1.93); BILIRUBIN,TOTAL 0.7 MG/DL (0.2-1.0); CALCIUM LEVEL 8.3 MG/DL (8.8-10.2); CREATININE FOR GFR 3.06 MG/DL (0.70-1.30); GLOMERULAR FILTRATION RATE 21.4 (>42); POTASSIUM SERUM 4.3 MEQ/L (3.5-5.1); TOTAL PROTEIN 6.6 GM/DL (6.4-8.2)
[2016-12-23] MEDS: HumaLOG INSULIN (NovoLOG) PER UNIT SC SCH (07:12)
[2016-12-23 08:00] VITALS: BP 171/89
--- NOTE | 2016-12-23 08:29 | IPN ---
DATE: 12/23/2016 Mr. Chaudhry is sitting at his bedside and insists on going home today. He denies having any chest discomfort or shortness of breath overnight. His vital signs this morning, blood pressure 140/74, heart rate is in 80s, it is mostly sinus rhythm with ventricular pacing. He is afebrile. Saturation 97% on room air. His fluid balance yesterday was about 1400 mL negative. Weight is documented 75.7 kg. Jugular venous pulse (JVP) does not look elevated. Lungs are clear to auscultation with good air movement. There is no wheezing, rhonchi or crackles. Heart exam reveals regular rhythm with paradoxically splitting second heart sound. The murmur is unchanged since yesterday. Abdomen is soft, nontender. There is no peripheral edema. Neurologically appears intact. Basic metabolic panel: Potassium 4.3, BUN 53, creatinine 3.06 and glucose 100. ASSESSMENT AND PLAN: Mr. Chaudhry is a 76-year-old man who has known ischemic cardiomyopathy with severe left ventricular (LV) systolic dysfunction who presented with nausea and vomiting believed to be due to medication side effects besides others, also ended ruling for non-STEMI and developed acute on chronic renal failure. Now he is likely back to baseline. The ECG is nondiagnostic due to pacemaker driven rhythm. He never had any chest discomfort. Nevertheless, in this situation it is likely that he had another ischemic event. Unfortunately, the patient adamantly refuses any consideration of anticoagulation as he has a history of life-threatening bleeding in 2014. Unfortunately, we do not have details of that evaluation. Neither do we have details of cardiac evaluation. The records from [facility] are not overly informative. Yet, I do agree that under these circumstances patient can be discharged home. He follows very closely with Dr. Lo, apparently according to patient he has been seen basically on a weekly basis. Further management can be decided by Dr. Lo who has known patient well for years. Otherwise, he is on appropriate medication regimen short of antiplatelet agents. He is on hydralazine and isosorbide dinitrate. He is on a full dose of Coreg and he is on statin.
[2016-12-23] MEDS: HEPARIN SOD (PORCINE) 5000 UNITS/ML VIAL SC SCH (08:31)
[2016-12-23] MEDS: TORSEMIDE 20 MG TAB PO SCH (08:31)
[2016-12-23 08:32] VITALS: BP 136/62
[2016-12-23] MEDS: ISOSORBIDE DINITRATE 40 MG PO SCH (08:32)
[2016-12-23] MEDS: CARVedilol 12.5 MG TAB PO SCH (08:33)
[2016-12-23] MEDS: SENOKOT S TAB PO SCH (08:33)
[2016-12-23] MEDS: **hydrALAZINE** 50 MG TAB PO SCH (08:33)
[2016-12-23] MEDS: ASPIRIN 81 MG ENTERIC TAB PO SCH (08:33)
[2016-12-23] MEDS: MECLIZINE 25 MG TABLET PO SCH (08:33)
[2016-12-23] MEDS ORDERED: POTASSIUM CHLORIDE 10 MEQ SR TABLET PO SCH (09:00)
[2016-12-23] MEDS ORDERED: ATOR1TAB21 PO (11:17)
[2016-12-23] MEDS ORDERED: POTA10CA PO (11:17)
[2016-12-23] MEDS ORDERED: DEMA20TA6 PO (11:17)
--- NOTE | 2016-12-23 13:13 | IPN ---
DATE: 12/23/2016 SUBJECTIVE: The patient was seen and examined at the bedside today in the morning. He was actually sitting on the sofa. He is asymptomatic. His renal function is stable. Creatinine came down to 3 at this time. REVIEW OF SYSTEMS: The patient denies any fever, chills, rigors, headache, nausea, vomiting, chest pain, shortness of breath, pain in abdomen, constipation or diarrhea. The rest of the review of systems is negative. OBJECTIVE: Vital signs with temperature 98 degrees Fahrenheit, blood pressure is 136/62, pulse is 88, respiratory rate of 18, saturating 99% on room air. Intake and output: Urine output recorded as 3.4 liter yesterday, 1125 mL so far today since overnight. Weight on the bed scale is 75.7 kg. PHYSICAL EXAMINATION: GENERAL: The patient is awake, alert and oriented times three, sitting on the sofa in no apparent distress. HEAD/NECK: Extraocular muscles intact. Pupils equally round and reactive to light. Mucous membranes are moist. Neck is supple. There is mildly elevated jugular venous distention (JVD). CARDIOVASCULAR: S1, S2, irregular heart rate. No murmur, rub or gallop. The patient has a midline old sternotomy scar and he has a pacemaker. RESPIRATORY: Chest is clear to auscultation bilaterally. Bilateral equal air entry. No rales or rhonchi. ABDOMEN: Soft. Positive bowel sounds. Nontender. No ascites. No organomegaly. EXTREMITIES: No clubbing or cyanosis. Pulses are 2+. No edema of the bilateral lower extremities. CENTRAL NERVOUS SYSTEM: No focal neurological deficit. Power is 5/5 in extremities. SKIN: No rashes or ulcers. LABORATORY REVIEW: CBC showed a WBC of 5.4, hemoglobin 9.8, platelets of 131. BMP showed sodium 141, potassium 4.3, chloride 103, bicarbonate 33, BUN 53, creatinine is 3 and it was 3.3 yesterday. Calcium is 8.3. Magnesium 2. CURRENT MEDICATIONS: The patient medications are all reviewed by me. There is no change in the medications today. He is currently on torsemide 20 mg by mouth daily and he is having good urine output with the current dose. ASSESSMENT: 76-year-old male with a past medical history of diabetes mellitus type 2 with diabetic nephropathy, coronary artery disease with ischemic cardiomyopathy, history of cardiogenic shock in the past, chronic kidney disease stage 3 with a baseline creatinine of around 3-4 being transferred to our facility. The patient was transferred to [facility] at this time because of acute kidney injury superimposed on chronic kidney disease and elevated troponins. PLAN: 1. Acute kidney injury superimposed on chronic kidney disease stage III. It looks like over the last one year the patient's baseline creatinine has been around 3 now. The patient's renal function is stable at this time. The rest of the management will be done as an outpatient. Continue current dose of diuretics. 2. Proteinuria. Most likely diabetic nephropathy. Extensive autoimmune serology was sent from [facility]. We shall get the records as an outpatient. 3. Elevated troponins. The patient has history of ischemic cardiomegaly, history of coronary artery bypass graft (CABG) in the past, history of cardiogenic shock in the past requiring stenting and Impella device. He is currently on Coreg, isosorbide, hydralazine, and by mouth torsemide. He is on aspirin 81 mg by mouth daily. Troponins have trended down. He is going to followup with Dr. Lo as an outpatient who is his sheet rock installer. 4. Acute decompensated systolic congestive heart failure. The patient's ejection fraction (EF) is around 35%. The patient initially got IV diuretics. Volume status has been optimized. Continue current dose of torsemide 20 mg by mouth daily. 5. Discharge planning. It is okay to discharge the patient from nephrology standpoint. He needs to followup with nephrology within two weeks after discharge from the hospital. The plan of care was discussed with the hospitalist, Dr. Hare.
--- NOTE | 2016-12-23 16:45 | DS.PDOC ---
Discharge Summary General Date of Admission Dec 20, 2016 at 18:12 Date of Discharge 12/23/16 Attending Physician: ELYSSA FABIAN MD Specialist/Consultants Involve: ABE NELSON MD Specialist/Consultants Involve Dr. Hou Discharge Summary PROCEDURES PERFORMED DURING STAY: None. ADMITTING/DISCHARGE DIAGNOSES: 1. Acute decompensated systolic heart failure 2. Ischemic cardiomyopathy status post ICD EF 35% 3. Cardiorenal syndrome 4. Hyponatremia 5. Elevated troponin from demand ischemia and renal failure 6. History of atrial fibrillation- history of GI bleed and refusing anticoagulation 7. Hypertension 8. Diabetes mellitus 9. History of in for wall LA and cardiogenic shock 10. Peripheral vascular disease 11. History of coronary artery disease status post CABG and PCI 12. Hyperlipidemia COMPLICATIONS/CHIEF COMPLAINT: Acute Renal Failure,Chf. HISTORY OF PRESENT ILLNESS/HOSPITAL COURSE: . This is a 76-year-old male with significant coronary artery disease and ischemic cardiomyopathy status post ICD who was transferred [facility] [place] to [facility] with abnormal renal function. Patient was in decompensated heart failure and cardiorenal syndrome. Patient had been getting progressively fatigued and was unable to ambulates for which Dr. Lo recommended the patient be admitted to the hospital. The patient was found to be in acute kidney injury on chronic kidney disease [place] possibly secondary to Bryureon, resulting in nausea and vomiting. Patient did have a CAT scan of the abdomen and pelvis at [facility] with notable inflammatory changes within the pancreatic tail. Patient states he's had prior episodes of pancreatitis from his long-acting diabetic medications. Patient was evaluated by Dr. Mishra/Dr. Hou as well as Dr. Nelson and has been diuresed. Patient's diuretics have been changed to torsemide and patient tolerated therapy well. He refused anticoagulation. Pt had proteinuria as well. Patient also had an autoimmune workup which has been sent at [facility]. Patient tolerated therapy well and has been cleared by physical therapy for discharge. Patient will be following up with cardiology as well as nephrology shortly after discharge. DISCHARGE MEDICATIONS: Please see below. ALLERGIES: Please see below. PHYSICAL EXAMINATION ON DISCHARGE: General: No acute distress, laying comfortably in bed. HEENT: Moist mucous membranes. Neck: No JVD or lymphadenopathy Cardiac: RRR, No murmurs Pulm: Minimal coarse crackles bilateral bases. No wheezing, rhonchi Abd: NT/ND + BS Ext: Trace to 1+ pitting edema bilateral lower extremities. No cyanosis LABORATORY DATA: Please see below. IMAGING: PROGNOSIS: Fair ACTIVITY: As tolerated. DIET: DASH diet DISCHARGE PLAN: DISPOSITION: 01 Home, Self-Care. DISCHARGE INSTRUCTIONS: 1. Follow-up with PCP, cardiology, nephrology in 1-2 weeks. DISCHARGE CONDITION: Stable. TIME SPENT ON DISCHARGE: Greater than 30 minutes. Vital Signs/I&Os Vital Signs Date Time Temp Pulse Resp B/P (MAP) Pulse Ox O2 Delivery O2 Flow Rate FiO2 12/23/16 08:33 88 12/23/16 08:32 136/62 12/23/16 08:00 Room Air 12/23/16 08:00 98.0 19 99 I&O- Last 24 Hours up to 6 AM 12/23/16 06:00 Intake Total 1780 ml Output Total 2475 ml Balance -695 ml Laboratory Data Labs 24H Laboratory Tests 2 12/22/16 16:42: Bedside Glucose (Misc Panel) 71L 12/22/16 20:55: Bedside Glucose (Misc Panel) 88 12/23/16 04:59: White Blood Count 5.4, Red Blood Count 3.04L, Hemoglobin 9.8L, Hematocrit 29.6L , Mean Corpuscular Volume 97.3H, Mean Corpuscular Hemoglobin 32.2, Mean Corpuscular Hemoglobin Concent 33.0, Red Cell Distribution Width 16.3H, Platelet Count 131L, Neutrophils (%) (Auto) 76.5H, Lymphocytes (%) (Auto) 10.0L , Monocytes (%) (Auto) 9.9H, Eosinophils (%) (Auto) 1.8, Basophils (%) (Auto) 0.2, Neutrophils # (Auto) 4.1, Lymphocytes # (Auto) 0.6L, Monocytes # (Auto) 0.5 , Eosinophils # (Auto) 0.1, Basophils # (Auto) 0.0, Large Unclassified Cells % 1.6, Large Unclassified Cells # 0.1, Anion Gap 5L, Glomerular Filtration Rate 21.4L, Blood Urea Nitrogen 53H, Creatinine 3.06H, Sodium Level 141, Potassium Level 4.3, Chloride Level 103, Carbon Dioxide Level 33H, Calcium Level 8.3L, Aspartate Amino Transf (AST/SGOT) 22, Alanine Aminotransferase (ALT/SGPT) 67, Alkaline Phosphatase 69, Total Bilirubin 0.7, Total Protein 6.6, Albumin 3.0L, Magnesium Level 2.0, Albumin/Globulin Ratio 0.83L CBC/BMP Laboratory Tests 12/23/16 04:59 Red Blood Count 3.04 L, Mean Corpuscular Volume 97.3 H, Mean Corpuscular Hemoglobin 32.2, Mean Corpuscular Hemoglobin Concent 33.0, Red Cell Distribution Width 16.3 H, Neutrophils (%) (Auto) 76.5 H, Lymphocytes (%) (Auto ) 10.0 L, Monocytes (%) (Auto) 9.9 H, Eosinophils (%) (Auto) 1.8, Basophils (%) (Auto) 0.2, Neutrophils # (Auto) 4.1, Lymphocytes # (Auto) 0.6 L, Monocytes # ( Auto) 0.5, Eosinophils # (Auto) 0.1, Basophils # (Auto) 0.0, Calcium Level 8.3 L , Aspartate Amino Transf (AST/SGOT) 22, Alanine Aminotransferase (ALT/SGPT) 67, Alkaline Phosphatase 69, Total Bilirubin 0.7, Total Protein 6.6, Albumin 3.0 L FSBS Laboratory Tests Test 12/22/16 16:42 12/22/16 20:55 Range/Units Bedside Glucose (Misc Panel) 71 88 83-110 MG/DL Microbiology Microbiology 12/20/16 Blood Culture - Preliminary, Resulted No Growth after 48 hours. All Specime... 12/20/16 Blood Culture - Preliminary, Resulted No Growth after 48 hours. All Specime... Discharge Medications Scheduled Aspirin (Aspirin 81) 81 Mg Tab, 81 MG PO DAILY, (Reported) Atorvastatin Calcium (Atorvastatin Calcium) 20 Mg Tab, 20 MG PO QHS Carvedilol (Carvedilol) 25 Mg Tab, 25 MG PO BID, (Reported) Glimepiride (Glimepiride) 4 Mg Tab, 4 MG PO DAILY, (Reported) Hydralazine HCl (Hydralazine HCl) 50 Mg Tab, 50 MG PO BID, (Reported) Isosorbide Dinitrate (Isosorbide Dinitrate ER) 40 Mg Tabcr, 40 MG PO BID, ( Reported) Meclizine HCl (Meclizine HCl) 25 Mg Tab, 25 MG PO BID, (Reported) Potassium Chloride (Klor-Con M10) 10 Meq Tabcr, 20 MEQ PO DAILY Torsemide (Demadex) 20 Mg Tab, 20 MG PO DAILY Scheduled PRN Ondansetron (Ondansetron Odt) 4 Mg Tab, 4 MG PO BID PRN for NAUSEA, (Reported) Allergies Coded Allergies: No Known Allergies (Unverified , 03/27/15) ELYSSA FABIAN MD Dec 23, 2016 16:45
== END 2016-12-23 12:45 | disposition home or self-care (01) | DRG 291 ==
LOC: M PCU 18:12
PROVIDERS: ADMIT Internal Medicine; ATTEND Internal Medicine
DX: I13.0 Hypertensive heart and chronic kidney disease with heart failure and stage 1 through stage 4 chronic kidney disease, or unspecified chronic kidney disease (principal); I50.23 Acute on chronic systolic (congestive) heart failure; E87.2 Acidosis; E87.1 Hypo-osmolality and hyponatremia; I48.1 Persistent atrial fibrillation; N17.9 Acute kidney failure, unspecified; I24.8 Other forms of acute ischemic heart disease; N18.4 Chronic kidney disease, stage 4 (severe); I25.10 Atherosclerotic heart disease of native coronary artery without angina pectoris; T38.3X5A Adverse effect of insulin and oral hypoglycemic [antidiabetic] drugs, initial encounter; E87.5 Hyperkalemia; E86.0 Dehydration; D63.1 Anemia in chronic kidney disease; E11.21 Type 2 diabetes mellitus with diabetic nephropathy; E11.22 Type 2 diabetes mellitus with diabetic chronic kidney disease; I25.5 Ischemic cardiomyopathy; K21.9 Gastro-esophageal reflux disease without esophagitis; R42 Dizziness and giddiness; I08.3 Combined rheumatic disorders of mitral, aortic and tricuspid valves; E78.5 Hyperlipidemia, unspecified; I25.2 Old myocardial infarction; I73.9 Peripheral vascular disease, unspecified; Z95.0 Presence of cardiac pacemaker; Z98.1 Arthrodesis status; Z95.1 Presence of aortocoronary bypass graft; Z79.82 Long term (current) use of aspirin; Z79.84 Long term (current) use of oral hypoglycemic drugs; Z79.899 Other long term (current) drug therapy

== ENCOUNTER → 2017-01-12 | Outpatient (REF) | payer MEDICARE, MEDICAID ==
[~2017-01-12] MED LIST changes: -ATOR1TAB18 PO; +ATOR1TAB21 PO; +ATOR80TA59 PO; +BYDU1INJ SC; +CARV25TA PO; +DEMA20TA6 PO; +GLIM4TAB PO; +HYDR-3911 PO; -HYDR-4267 PO; +MECL-68 PO; +ONDA4TAB6 PO; +POTA10CA PO
[2017-01-12 20:50] LABS: COMPLEMENT C4 27.6 MG/DL (10-40)
== END ==
LOC: M LAB REF 18:18
PROVIDERS: ATTEND Internal Medicine Nephrology
DX: N18.4 Chronic kidney disease, stage 4 (severe) (principal)

== ENCOUNTER 2018-09-17 13:52 | Inpatient (IN) | payer MEDICARE, MEDICAID ==
[~2018-09-17] VITALS: Ht 177.8 cm; Wt 71.0 kg
[~2018-09-17 13:52] MED LIST changes: +KLOR10TA76 PO; -PANT40TA2 PO; +PANT40TA3 PO; -POTA10CA PO
[2018-09-17 15:18] VITALS: BP 168/88
[2018-09-17] MEDS ORDERED: GLUCOSE 4 GM CHEW TABLET PO PRN (17:00)
[2018-09-17] MEDS ORDERED: DEXTROSE 50% 50 ML SYRINGE IV PRN (17:00)
[2018-09-17] MEDS ORDERED: ACETAMINOPHEN TAB 650MG DOSE (2X325MG) PO PRN (17:00)
[2018-09-17] MEDS ORDERED: GLUCAGON FOR INJ 1 MG VIAL (J1610) SC PRN (17:00)
[2018-09-17] MEDS ORDERED: TOUJ1.2I SC (17:14)
[2018-09-17] MEDS ORDERED: ISOS30TA4 PO (17:14)
[2018-09-17] MEDS ORDERED: ALLO100T PO (17:14)
[2018-09-17] MEDS ORDERED: TRAM50TA2 PO (17:14)
[2018-09-17] MEDS ORDERED: PLAV1TAB2 PO (17:14)
[2018-09-17] MEDS ORDERED: TYLE325T5 PO (17:14)
[2018-09-17] MEDS ORDERED: HYDR50TA PO (17:16)
[2018-09-17] MEDS: HumaLOG INSULIN (NovoLOG) PER UNIT SC SCH ×2 (17:17→21:23)
[2018-09-17] MEDS ORDERED: NITR4TASL SL (17:18)
[2018-09-17 17:27] LABS: EOS % 0.9 % (0.0-3.0); HEMATOCRIT 27.7 % (42.0-52.0); LYMPH # 0.3 10^3/uL (1.5-4.5); LYMPH % 6.1 % (24.0-44.0); MEAN CORPUSCULAR HEMOGLOBIN 30.1 pg (27.0-33.0); MEAN CORPUSCULAR HGB CONC 32.5 g/dl (32.0-36.5); MEAN CORPUSCULAR VOLUME 92.6 fl (80.0-96.0); MONO # 0.7 10^3/uL (0.0-0.8); MONO % 14.8 % (0.0-5.0); NEUTROPHILS # 3.3 10^3/uL (1.8-7.7); NEUTROPHILS % 73.3 % (36.0-66.0); RED BLOOD COUNT 2.99 10^6/uL (4.30-6.10); WHITE BLOOD COUNT 4.5 10^3/uL (4.0-10.0)
[2018-09-17 17:55] LABS: CREATININE FOR GFR 3.23 MG/DL (0.70-1.30); POTASSIUM SERUM 3.3 MEQ/L (3.5-5.1)
[2018-09-17 18:00] VITALS: BP 156/74
[2018-09-17 18:00] LABS: PLATELET COUNT, AUTOMATED 47 10^3/uL (150-450)
[2018-09-17] MEDS ORDERED: traMADol 50 MG TAB PO PRN (18:30)
[2018-09-17] MEDS ORDERED: NITROGLYCERIN 0.3 MG SUBL TAB SL PRN (18:30)
--- NOTE | 2018-09-17 18:37 | HPEPDOC ---
[facility] Medical History & Physical Date of Admission Sep 17, 2018 Primary Care Physician: Deni Lo MD Attending Physician: ELE CURRY MD History and Physical CHIEF COMPLAINT: Patient is a 78-year-old white male who initially presented to [facility] in 09/12/18 with nausea, chest pressure, vomiting and low blood sugar. HISTORY OF PRESENT ILLNESS: Patient is a 78-year-old white male who presented to [facility] via EMS transport from [facility]. Patient initially presented to [facility] on 09/12/18. At presentation he was complaining of chest pressure that lasted half an hour and was relieved by a single nitroglycerin. He later complained of nausea and subsequently vomited one time. His blood sugar was 54 at that time. He drank orange juice and felt better. Repeat home blood sugar was 134. In the [place] emergency room patient reported having a decreased appetite and nausea for the last few days. He also reported weakness, fatigue, retrosternal chest pressure without radiation to the neck or arms. He denied fever, history of sweating or dyspnea. The patient was admitted with chest pain to rule out acute coronary event. Patient did have an initial troponin elevation likely secondary to his renal disease and acute on chronic renal failure. He did not have any more chest pain while he was in the hospital. He was treated with half normal saline at 66 mL per hour and Unasyn 1.5 g every 8 hours IV. Blood cultures came back negative and so Unasyn was discontinued. Procrit 20,000 units subcutaneous and Ferrlecit 125 mg IV were given. Patient's Levemir insulin was adjusted. He was initially on observation and on 09/14, he was transferred to inpatient. Patient had no urine output for the last 24 hours prior to his admission, so was decided to start Lasix IV drip at 10 mg per hour, which was changed to 20 mg per hour. Patient diureses better with at least 30-50 mL of urine per hour noted. Dr. Lo spoke with Dr. Medina, covering load test mechanic, who agreed that the patient may be a candidate for dialysis. His transfer was confirmed with the hospitalist team at [facility]. Dr. Cabrera will be consulting from nephrology. PAST MEDICAL HISTORY: -Atrial fibrillation with RVR 03/19/18 -History of cardiogenic shock s/p SD with transfer to [facility] 12/13 -Coronary artery bare metal stent placement 08/13 -Coronary artery bypass graft 11/09 -Pacemaker implant and ICD -Acute on chronic congestive heart failure -Congestive heart failure, ejection fraction 20-25% -Peripheral vascular disease -Diabetes type 2 -Hypertension SURGICAL HISTORY: Coronary artery bypass graft Spinal fusion surgery History of esophageal gastroduodenoscopy SOCIAL HISTORY: Marital status: Resides in: Lives in own home alone, no home health Children: One daughter age 57 Employment: Retired mechanic welder Tobacco use: Lifelong nonsmoker ETOH: Ports occasional drinking Illicit drug use: No illicit drug use FAMILY HISTORY: Father: Mother: Heart disease ALLERGIES: Please see below. REVIEW OF SYSTEMS: CONSTITUTIONAL: Patient complains of long-standing fatigue. He denies fevers, chills, changes in weight, night sweats. HEENT: Patient denies headache, changes in vision, rhinorrhea, nasal congestion, difficulty swallowing CARDIOVASCULAR: Patient denies chest pain/pressure RESPIRATORY: Patient denies cough, shortness of breath, difficulty breathing GASTROINTESTINAL: Patient denies nausea, vomiting, reflux, abdominal pain, diarrhea, constipation GENITOURINARY: Patient denies urinary hesitancy, frequency, dysuria, hematuria SKIN: Patient denies any new or changing skin lesions MUSCULOSKELETAL: Patient denies weakness NEUROLOGICAL: Patient denies any focal neurologic deficits, no weakness PSYCHIATRIC: Patient denies depression/anxiety ENDOCRINE: Denies heat/cold intolerance HOME MEDICATIONS: Please see below. PHYSICAL EXAMINATION: VITAL SIGNS: Temperature 97, pulse 73, respiratory rate 18, blood pressure 168/88 (114), pulse oximetry 90% on room air. GENERAL APPEARANCE: Patient is alert and oriented x3, sitting upright in his hospital bed in no acute distress HEENT: Normocephalic atraumatic, EOMI, PERRLA, mucus membranes moist CARDIOVASCULAR: Irregularly irregular, no appreciable murmur gallop or rub LUNGS: Clear to auscultation bilaterally ABDOMEN: Soft, nontender, bowel sounds present MUSCULOSKELETAL: No muscle weakness EXTREMITIES: Able to move extremities equally, peripheral pulses 2+ bilaterally, NEUROLOGICAL: No aphasia, no weakness, no lower extremity edema, no calf tenderness. Oriented to person place and time. PSYCHIATRIC: Mood and affect are appropriate LABORATORY DATA: See below. IMAGING: X-ray: Cardiomegaly, consistent with mild CHF and interstitial edema PLAN: Acute kidney injury superimposed on chronic kidney disease -Patient carries a diagnosis of stage III kidney disease. Creatinine of 3.23, elevated from baseline -Patient received diuresis at [place] -Monitor creatinine with serial BMP -Nephrology consulted -Patient will likely require dialysis. No emergent need at this time. CHF - EF of 40% - Patient was diuresed at [facility] - Plan to hold for now given that the patient does not appear overloaded - Echo, BNP, CXR ordered Atrial fibrillation - Carvedilol 25 mg by mouth twice a day for rate control CAD s/p stent - Continue Plavix and ASA 81 Hypertension - Continue home hydralazine 50 mg by mouth twice a day - Continue isosorbide mononitrate 300 mg twice a day Diabetes -Hold home diabetic medications -Sliding scale insulin with FSBG AC & HS -Consistent Carb diet DVT prophylaxis: Sequentials Laboratory Data Labs 24H Laboratory Tests 2 09/17/18 17:15: CBC/BMP Home Medications Scheduled ([place]) 300 Unit/Ml Inj, 34 UNIT SC QHS Allopurinol (Allopurinol) 100 Mg Tab, 100 MG PO DAILY Aspirin (Aspirin 81) 81 Mg Tab, 81 MG PO DAILY Atorvastatin Calcium (Atorvastatin Calcium) 20 Mg Tab, 20 MG PO QHS Carvedilol (Carvedilol) 25 Mg Tab, 25 MG PO BID Clopidogrel Bisulfate (Plavix) 75 Mg Tab, 75 MG PO QHS Hydralazine HCl (Hydralazine HCl) 50 Mg Tab, 50 MG PO BID PATIENT UNSURE IF HE IS STILL ON THIS OR NOT. Isosorbide Mononitrate (Isosorbide Mononitrate ER) 30 Mg Tab, 30 MG PO BID Scheduled PRN Acetaminophen (Tylenol) 325 Mg Tab, 650 MG PO Q4H PRN for PAIN / FEVER Nitroglycerin (Nitrostat) 0.4 Mg Subl, 0.4 MG SL NITRO PRN for CHEST PAIN Tramadol HCl (Tramadol HCl) 50 Mg Tab, 50 MG PO DAILY PRN for SEVERE PAIN (PS 8- 10) Allergies Coded Allergies: No Known Allergies (Unverified , 03/27/15) GME ATTESTATION GME ATTESTATION My faculty preceptor for this patient encounter was physically present during the encounter and was fully available. All aspects of the patient interview, examination, medical decision making process, and medical care plan development were reviewed and approved by the faculty preceptor. The faculty preceptor is aware and concurs with the plan as stated in the body of this note and will attest to such by his/her cosignature. JOSR MARTINEZ DO Sep 17, 2018 18:37
[2018-09-17] MEDS ORDERED: POTASSIUM CHLORIDE 10 MEQ SR TABLET PO ONE (21:00)
[2018-09-17] MEDS: ATORVASTATIN 20 MG TAB PO SCH (21:22)
[2018-09-17] MEDS: CLOPIDOGREL 75 MG TAB PO SCH (21:22)
[2018-09-17] MEDS: CARVedilol 12.5 MG TAB PO SCH (21:23)
[2018-09-17] MEDS: ISOSORBIDE MON. (IMDUR) 30 MG XR TAB PO SCH (21:23)
[2018-09-17] MEDS: **hydrALAZINE** 50 MG TAB PO SCH (21:23)
[2018-09-17 22:00] VITALS: BP 137/58
--- NOTE | 2018-09-17 23:10 | REP ---
PORTABLE CHEST: AP portable view of the chest is performed and compared to prior study of 12/20/2016. There is mild cardiomegaly, stable when compared to prior study. There is calcification of the thoracic aorta. The mediastinal silhouette is unchanged. Pulmonary vasculature is somewhat prominent and there diffuse increased accentuated interstitial markings which appear quite similar to the prior study. Multiple sternal wires are present. There is a left pacemaker. IMPRESSION: Mild cardiomegaly with prominent pulmonary vasculature and interstitial markings appearing quite similar to the prior study of 12/20/2016. Electronically Signed by Thierry Foster MD 09/18/2018 06:49 P
[2018-09-18] VITALS (8 sets, daily range): BP systolic 142–164; BP diastolic 70–79
[2018-09-18 06:12] LABS: HEMATOCRIT 25.3 % (42.0-52.0); HEMOGLOBIN 8.2 g/dl (13.5-17.5); MEAN CORPUSCULAR HEMOGLOBIN 29.9 pg (27.0-33.0); MEAN CORPUSCULAR HGB CONC 32.4 g/dl (32.0-36.5); MEAN CORPUSCULAR VOLUME 92.3 fl (80.0-96.0); RED BLOOD COUNT 2.74 10^6/uL (4.30-6.10); WHITE BLOOD COUNT 4.6 10^3/uL (4.0-10.0)
[2018-09-18 06:15] LABS: PLATELET COUNT, AUTOMATED 30 10^3/uL (150-450)
[2018-09-18 06:35] LABS: ALBUMIN 2.5 GM/DL (3.2-5.2); CREATININE FOR GFR 3.14 MG/DL (0.70-1.30); GLOMERULAR FILTRATION RATE 20.7 (>42); MAGNESIUM LEVEL 1.6 MG/DL (1.8-2.4); PHOSPHORUS LEVEL 2.2 MG/DL (2.5-4.9); POTASSIUM SERUM 3.5 MEQ/L (3.5-5.1); URIC ACID 8.4 MG/DL (3.5-7.2)
[2018-09-18] MEDS: ASPIRIN 81 MG ENTERIC TAB PO SCH (08:19)
[2018-09-18] MEDS: HumaLOG INSULIN (NovoLOG) PER UNIT SC SCH ×4 (08:20→21:16)
[2018-09-18] MEDS: ISOSORBIDE MON. (IMDUR) 30 MG XR TAB PO SCH ×2 (08:20→21:16)
[2018-09-18] MEDS: **hydrALAZINE** 50 MG TAB PO SCH ×2 (08:21→21:15)
[2018-09-18] MEDS: CARVedilol 12.5 MG TAB PO SCH ×2 (08:21→21:16)
[2018-09-18] MEDS ORDERED: MAG SULF 1GM/100ML (MAG RUN) 1 GM in APPROPRIATE DILUENT 1 EA IV ONE (10:00)
[2018-09-18] MEDS: LEVEMIR (INSULIN DETEMIR) 1 UNITS/0.01ML SC SCH ×2 (11:07→21:16)
[2018-09-18 13:36] LABS: PERCENT SATURATION 12.7 % (19.7-50.0)
[2018-09-18] MEDS: SPIRONOLACTONE 12.5MG PER 1/2 TABLET PO SCH (14:24)
[2018-09-18] MEDS: TORSEMIDE 20 MG TAB PO SCH (14:24)
--- NOTE | 2018-09-18 17:13 | IPN ---
DATE: 09/18/2018 The patient is seen and examined. No acute events overnight. Reported to be comfortable. Denies any shortness of breath, chest pain, pressure or discomfort. VITAL SIGNS: Temperature 97.1, pulse 67, respirations 16, blood pressure 142/70, pulse oximetry 95% on room air. LABORATORY DATA: WBC 4.6, hemoglobin and hematocrit 8.2/25.3, platelets 30. Chemistry: Sodium 140, potassium 3.5, chloride 99, bicarbonate 33, BUN 59, creatinine 3.14, magnesium 1.6. PHYSICAL EXAMINATION: GENERAL: The patient is alert, comfortable and in no acute distress. HEENT: Normocephalic, atraumatic. PULMONARY: Bilaterally clear. CARDIAC: Regular. S1, S2. ABDOMEN: Soft, nontender. Positive bowel sounds. EXTREMITIES: No edema in bilateral lower extremities. ASSESSMENT AND PLAN: This is a 78-year-old male patient with underlying medical history of chronic kidney disease stage IV, atrial fibrillation with rapid ventricular response, cardiogenic shock with myocardial infarction, coronary artery disease with bare metal stent in July 2014, coronary artery bypass graft (CABG) in October 2013, AICD, history of congestive heart failure (CHF), ejection fraction of 20 to 25%, peripheral vascular disease, type 2 diabetes, hypertension, who was treated at [facility] with acute congestive heart failure (CHF) exacerbation, was being actively diuresed by the patient's oracle sql developer, but subsequently was transferred to [facility] for acute on chronic renal failure. 1. Acute on chronic renal failure. Possibly secondary to aggressive diuresis. Nephrology consulted. Patient's kidney function is returning to baseline. Restarted back on back diuretics. Avoid nephrotoxic agents. Avoid fluid overload given the patient has severe congestive heart failure (CHF) at baseline with systolic dysfunction. 2. Congestive heart failure (CHF) with ejection fraction of 20 to 25% with systolic dysfunction. Office Support Specialist has restarted diuretic, including torsemide and spironolactone. We will monitor kidney function and monitor electrolytes. Continue beta cynthia, statin, aspirin. Holding uidcamvzwpf-hymeuimpmf-pdtyib (SHANTHI) inhibitor given elevated creatinine. Further recommendations as per nephrology. Continue Plavix. 3. Hypertension. Continue blood pressure medication with Coreg, hydralazine, Imdur, torsemide, spironolactone. 4. Coronary arterial disease. Continue aspirin, statin, Plavix, Coreg, spironolactone, hydralazine, Imdur, and torsemide. Monitor blood pressure. Echo has been ordered. 5. Atrial fibrillation. Continue Coreg. 6. Severe thrombocytopenia. Not a candidate for anticoagulation at this point given bleeding risk. 7. Diabetes. Basal bolus insulin. Basal insulin dosage has been decreased given renal insufficiency. 8. Peripheral vascular disease. Continue aspirin and statin. 9. Deep vein thrombosis (DVT) prophylaxis. Thromboembolic compression stockings (TEDS) and sequentials. Avoid anticoagulation given severe thrombocytopenia. We will monitor clinically. DISPOSITION: Physical therapy (PT) and occupational therapy (OT). Nephrology for further recommendations. Echocardiogram has also been ordered. Likely discharge in the next 24 to 48 hours pending PT.
[2018-09-18] MEDS ORDERED: IRON SUCROSE 100MG 5ML VIAL (J1756 PER 1MG) IV ONE (18:45)
[2018-09-18] MEDS ORDERED: IRON SUCROSE 25 MG in NS 50 ML IV ONE (20:00)
[2018-09-18] MEDS ORDERED: IRON SUCROSE 400 MG in NS 250 ML OVER 2.5 HRS IV ONE (21:00)
[2018-09-18] MEDS: CLOPIDOGREL 75 MG TAB PO SCH (21:15)
[2018-09-18] MEDS: ATORVASTATIN 20 MG TAB PO SCH (21:15)
[2018-09-19] VITALS (7 sets, daily range): BP systolic 130–177; BP diastolic 62–84
--- NOTE | 2018-09-19 02:26 | CR ---
DATE OF CONSULTATION: 09/18/2018 REQUESTING PHYSICIAN: Tia Dumas MD CONSULTING PHYSICIAN: Benja Medina MD REASON FOR CONSULTATION: Management of acute kidney injury superimposed on chronic kidney disease. CHIEF COMPLAINT: The patient was transferred from [facility] for further management of acute kidney injury superimposed on chronic kidney disease and possible need of hemodialysis. HISTORY OF PRESENT ILLNESS: Mr. Niles Chaudhry is a 78-year-old male with a past medical history of chronic kidney disease stage IV with a best baseline creatinine of around 3 as per 2017. He used to be my patient at outpatient nephrology clinic; however, he is noncompliant and he stopped following up with our clinic. The patient reports that he was scared to go into renal failure and needing dialysis so he started following up with some person who treats kidney disease without the need of dialysis and he was given a lot of vitamins; however, it did not help him. The patient also has a history of severe systolic congestive heart failure and as per records he presented to the [facility] with chest pain and pressure. He was found to have anemia, decompensated heart failure. He was diuresed with intravenous (IV) Lasix drip. His volume status was optimized and because of his borderline renal function he was transferred to [facility] for further management. I saw and evaluated the patient today morning at the bedside. The patient reports that he is feeling much better after diuresis. He denies any shortness of breath. He reports that he is back at his baseline. He denies any fevers or chills at this point. PAST MEDICAL HISTORY: The patient has a past medical history of 1. Chronic kidney disease stage IV. Baseline creatinine around 3. 2. History of atrial fibrillation (AFib). 3. History of systolic congestive heart failure. Previous echocardiogram showed an ejection fraction (EF) of around 20% to 25%. 4. History of coronary artery disease and myocardial infarction in the past. 5. History of coronary artery stenting and coronary artery bypass grafting in the past. 6. Status post automatic implantable cardioverter-defibrillator (AICD) placement. 7. Peripheral vascular disease. 8. Diabetes mellitus type 2. 9. Hypertension. PAST SURGICAL HISTORY: 1. Status post coronary artery bypass grafting. 2. Status post spinal fusion surgery. 3. History of esophagogastroduodenoscopy (EGD) in the past. 4. Status post automatic implantable cardioverter-defibrillator (AICD) placement. ALLERGIES: No known drug allergies. FAMILY HISTORY: No significant family history of any kidney disease requiring hemodialysis. SOCIAL HISTORY: The patient lives alone. He denies any smoking, illicit drug abuse or alcohol abuse. REVIEW OF SYSTEMS: CONSTITUTIONAL: The patient reports fatigue but he denies any fevers or chills. EYES: He denies any blurry vision, double vision. ENT: He denies any dysphagia, odynophagia or ear discharge. CARDIOVASCULAR: He reports a recent history of congestive heart failure. He denies any chest pain or palpitations at this point. RESPIRATORY: He denies any shortness of breath, cough or phlegm. GASTROINTESTINAL (GI): He denies any nausea or vomiting or constipation. GENITOURINARY (): He denies any dysuria or hematuria. MUSCULOSKELETAL: He denies any muscle aches and pains. CENTRAL NERVOUS SYSTEM (RAILROAD ENGINEER): He denies any strokes or seizures. SKIN: He denies any rashes or ulcers. ENDOCRINE: He reports a history of diabetes mellitus type 2. HEMATOLOGICAL ONCOLOGICAL: He denies any easy bleeding or bruising. All other review of systems is negative. PHYSICAL EXAMINATION: GENERAL: The patient is awake, alert, and oriented times three. He is lying in bed in no apparent distress. VITAL SIGNS: Temperature is 97.1 degrees Fahrenheit, blood pressure 142/70, pulse is 57, respiratory rate of 16, saturating 95% on room air. HEAD AND NECK EXAM: Extraocular muscles are intact. Pupils are equally round and reactive to light. Mucous membranes are moist. Neck is supple. There is mildly elevated jugular venous distention (JVD). CARDIOVASCULAR: S1, S2. Pacemaker was noted. 1+ edema of the bilateral lower extremities. RESPIRATORY: Mildly decreased breath sounds at the bases otherwise no active rales or rhonchi. ABDOMEN: Soft, positive bowel sounds. Nontender, no organomegaly. MUSCULOSKELETAL: No clubbing or cyanosis. Pulses are 2+. CENTRAL NERVOUS SYSTEM (RAILROAD ENGINEER): No focal deficits. Power is 5/5 in all extremities. LABORATORY REVIEW: Complete blood count (CBC) showed a white blood cell (WBC) of 4.6, hemoglobin 8.2, platelets are 30. Basic metabolic panel (BMP) showed sodium 140, potassium 3.5, chloride 95, bicarbonate 33, BUN 59, creatinine is 3.1, glomerular filtration rate (GFR) is 20. Uric acid is 8.4. Phosphorus is 2.2. Iron 26, iron binding capacity is 204. Transferring saturation is 12.7. Ferritin is 115. ProBNP is 7962. Albumin is 2.5. Parathyroid hormone (PTH) level is pending. IMAGING: A chest x-ray was done yesterday which showed mild cardiomegaly with prominent pulmonary vasculature and interstitial markings. CURRENT INPATIENT MEDICATIONS: The patient's inpatient medications were all reviewed by me. He got a dose of: - magnesium sulfate intravenous (IV) today morning - aspirin - he is on aspirin 81 mg daily - Lipitor 20 mg at bedtime - Coreg 25 mg by mouth twice a day - Plavix 75 mg at bedtime - insulin Levemir 10 units subcutaneous twice a day - insulin sliding scale - Imdur 30 mg by mouth twice a day - potassium chloride - he was given a dose of potassium chloride 20 mEq by mouth times one dose - spironolactone - he has been started on spironolactone 12.5 mg by mouth daily - torsemide - I have started him on torsemide 20 mg by mouth daily - tramadol as needed ASSESSMENT: A 78-year-old male with acute kidney injury superimposed on chronic kidney disease stage IV, acute decompensated systolic congestive heart failure. PLAN: 1. Acute kidney injury superimposed on chronic kidney disease stage IV. The patient is at his baseline now. Creatinine is 3.1 which is close to his baseline. Given his history of severe systolic heart failure I am going to restart low dose of diuretics. Possible need of renal replacement therapy in near future was discussed with the patient. The patient will need to get an arteriovenous (AV) fistula placement. 2. Acute decompensated systolic congestive heart failure. The patient got intravenous (IV) Lasix drip. His volume status is significantly better. I have started him on torsemide 20 mg by mouth daily and spironolactone 12.5 mg by mouth daily. He is not a candidate for angiotensin II receptor blockers (ARB) or SHANTHI inhibitors. Continue current dose of Coreg 25 mg by mouth twice a day along with hydralazine and isosorbide. 3. Hypertension with hypertensive heart disease. Blood pressure is still slightly elevated. Further optimization of volume status would help improve blood pressure. Continue Coreg 25 mg by mouth twice a day, hydralazine 50 mg by mouth twice a day, isosorbide 30 mg by mouth twice a day. If needed, these medications will be changed to three times a day. 4. Coronary artery disease. The patient has a history of cardiogenic shock in the past and coronary artery bypass grafting, ischemic cardiomyopathy. Continue current dose of aspirin, atorvastatin and Plavix. Congestive heart failure (CHF) management is as mentioned above. 5. Insulin-dependent diabetes type 2. Continue insulin sliding scale and Levemir. 6. Iron deficiency anemia. I am going to start the patient on intravenous (IV) Venofer. 7. Hypomagnesemia. The patient was already given intravenous (IV) magnesium sulfate 1 gram. 8. Hyperuricemia. The patient is asymptomatic. If the uric acid goes up then I will start the patient on allopurinol. Thank you for involving me in the care of this patient. I shall be happy to follow the patient along with you tomorrow morning. MAGALY
[2018-09-19 06:16] LABS: HEMATOCRIT 25.8 % (42.0-52.0); HEMOGLOBIN 8.3 g/dl (13.5-17.5); MEAN CORPUSCULAR HEMOGLOBIN 29.7 pg (27.0-33.0); MEAN CORPUSCULAR HGB CONC 32.2 g/dl (32.0-36.5); MEAN CORPUSCULAR VOLUME 92.5 fl (80.0-96.0); RED BLOOD COUNT 2.79 10^6/uL (4.30-6.10); WHITE BLOOD COUNT 4.5 10^3/uL (4.0-10.0)
[2018-09-19 06:31] LABS: PLATELET COUNT, AUTOMATED 24 10^3/uL (150-450)
[2018-09-19 06:43] LABS: ALBUMIN 2.5 GM/DL (3.2-5.2); GLOMERULAR FILTRATION RATE 21.8 (>42); MAGNESIUM LEVEL 1.9 MG/DL (1.8-2.4); PHOSPHORUS LEVEL 2.2 MG/DL (2.5-4.9); POTASSIUM SERUM 3.1 MEQ/L (3.5-5.1)
--- NOTE | 2018-09-19 07:16 | ECHO ---
DATE OF STUDY: 09/18/2018 REFERRING PHYSICIAN: Dayan Kimbrough MD INDICATION: Heart failure, unspecified. HEIGHT: 5 feet 11 inches. WEIGHT: 154 pounds. 2D MEASUREMENTS: Left ventricle diastole: 5.9 cm Ventricular septum: 1.22 cm Posterior wall: 1.02 cm Aortic anulus: 2.0 cm Aortic root: 3.4 cm Left atrium: 4.2 cm Inferior vena cava: 2.7 cm DOPPLER MEASUREMENTS: Mild aortic regurgitation. No aortic stenosis. Aortic valve velocity: 147 cm/s LVOT velocity: 94.6 cm/s LVOT VTI: 19.1 cm Mild mitral regurgitation. Mitral E velocity: 90.7 cm/s Mitral A velocity: 72.8 cm/s Mild desaturation time: 246 ms Moderate tricuspid regurgitation. Estimated right ventricle systolic pressure: At least 88 mmHg assuming a right pressure of at least 20 mmHg. Mild pulmonic regurgitation. MITRAL ANNULAR TISSUE DOPPLER: E prime septal: 3.1 cm/s E prime lateral: 3.9 cm/s DESCRIPTION: Rhythm was sinus. Image quality was fair. This was a 2D, M-mode, color flow Doppler and pulse wave Doppler examination and included mitral annular tissue Doppler. CONCLUSIONS: 1. Mildly dilated left ventricle with severe reduction of left ventricle (LV) systolic function. Left ventricular ejection fraction (LVEF) 30% by visual estimate. Multiple regional wall motion abnormalities. Grade 2 LV diastolic dysfunction (pseudonormal LV diastolic filling pattern). Akinesis of the apical cap segment. Akinesis of the anterior, lateral, and inferior apical segments with moderate hypokinesis of the septal-apical segment. Akinesis of the mid anterior segment and severe hypokinesis of the basal anterior segment. Akinesis of the basal and mid anterolateral segments. Moderate hypokinesis of the basal inferolateral segment and akinesis of the mid inferolateral segment. Akinesis of the basal inferior segment and moderate hypokinesis of mid inferior segment. Normal wall motion and wall thickening of the basal and mid anteroseptal and inferoseptal LV segments. No LV apical thrombus. 2. Mild left atrial dilatation. 3. Moderate aortic valve sclerosis of a three-cuspid aortic valve. Mild aortic regurgitation. No aortic stenosis. 4. Mild mitral annular calcification. Mild mitral regurgitation. 5. Severe elevation of estimated right ventricle systolic pressure (at least 88 mmHg). Moderate tricuspid regurgitation. 6. Inferior vena cava plethora with marked reduction of respiratory regurgitation suggestive of elevated central venous pressure of at least 20 mmHg. Hepatic venous congestion. 7. ICV coursing towards the right ventricle apex position. 8. No pericardial effusion.
[2018-09-19] MEDS ORDERED: POTASSIUM CHLORIDE 10 MEQ SR TABLET PO ONE (08:15)
[2018-09-19] MEDS: SPIRONOLACTONE 12.5MG PER 1/2 TABLET PO SCH (08:20)
[2018-09-19] MEDS: **hydrALAZINE HCL** 25 MG TAB PO SCH ×2 (08:21→21:28)
[2018-09-19] MEDS: CARVedilol 12.5 MG TAB PO SCH ×2 (08:21→21:28)
[2018-09-19] MEDS: TORSEMIDE 20 MG TAB PO SCH (08:21)
[2018-09-19] MEDS: ASPIRIN 81 MG ENTERIC TAB PO SCH (08:21)
[2018-09-19] MEDS: ISOSORBIDE MON. (IMDUR) 30 MG XR TAB PO SCH ×2 (08:22→21:29)
[2018-09-19] MEDS: HumaLOG INSULIN (NovoLOG) PER UNIT SC SCH ×4 (08:22→21:29)
[2018-09-19] MEDS: LEVEMIR (INSULIN DETEMIR) 1 UNITS/0.01ML SC SCH ×2 (08:22→21:29)
--- NOTE | 2018-09-19 15:09 | IPNPDOC ---
Text Note Date of Service The patient was seen on 09/19/18. NOTE The patient is seen and examined. No acute events overnight. Reported to be comfortable. Denies any shortness of breath, chest pain, pressure or discomfort. PHYSICAL EXAMINATION: GENERAL: The patient is alert, comfortable and in no acute distress. HEENT: Normocephalic, atraumatic. PULMONARY: Bilaterally clear. CARDIAC: Regular. S1, S2. ABDOMEN: Soft, nontender. Positive bowel sounds. EXTREMITIES: No edema in bilateral lower extremities. ASSESSMENT AND PLAN: This is a 78-year-old male patient with underlying medical history of chronic kidney disease stage IV, atrial fibrillation with rapid ventricular response, cardiogenic shock with myocardial infarction, coronary artery disease with bare metal stent in July 2014, coronary artery bypass graft (CABG) in October 2013, AICD, history of congestive heart failure (CHF), ejection fraction of 20 to 25%, peripheral vascular disease, type 2 diabetes, hypertension, who was treated at [facility] with acute congestive heart failure (CHF) exacerbation, was being actively diuresed by the patient's cadd instructor, but subsequently was transferred to [facility] for acute on chronic renal failure. 1. Acute on chronic renal failure. Possibly secondary to aggressive diuresis. Nephrology consulted. Patient's kidney function is returning to baseline. Restarted back on diuretics. Avoid nephrotoxic agents. Avoid fluid overload given the patient has severe congestive heart failure (CHF) at baseline with systolic dysfunction. 2. Congestive heart failure (CHF) with ejection fraction of 20 to 25% with systolic dysfunction. Data Control Clerk Supervisor has restarted diuretic, including torsemide and spironolactone. We will monitor kidney function and monitor electrolytes. Continue beta cynthia, statin, aspirin. Holding zovnlifluou-yksgswdeyc-noanxo (SHANTHI) inhibitor given elevated creatinine. Further recommendations as per nephrology. hold Plavix given severe thrombocytopenia. c/w asa 3. Hypertension. Continue blood pressure medication with Coreg, increased hydralazine, Imdur, torsemide, spironolactone. 4. Coronary arterial disease. Continue aspirin, statin, Coreg, spironolactone, hydralazine, Imdur, and torsemide. Monitor blood pressure. Echo has been ordered. temporary hold Plavix given thrombocytopenia 5. Atrial fibrillation. Continue Coreg. 6. Severe thrombocytopenia. Not a candidate for anticoagulation at this point given bleeding risk. workup sent. 7. Diabetes. Basal bolus insulin. Basal insulin dosage has been decreased given renal insufficiency. 8. Peripheral vascular disease. Continue aspirin and statin. 9. Deep vein thrombosis (DVT) prophylaxis. Thromboembolic compression stockings (TEDS) and sequentials. Avoid anticoagulation given severe thrombocytopenia. We will monitor clinically. DISPOSITION: Physical therapy (PT) and occupational therapy (OT). Nephrology for further recommendations. Likely discharge in the next 24 to 48 hours pending PT. VS,Vladimire, I+O VS, Brodybone, I+O Laboratory Tests 09/19/18 06:01 Red Blood Count 2.79 L, Mean Corpuscular Volume 92.5, Mean Corpuscular Hemoglobin 29.7, Mean Corpuscular Hemoglobin Concent 32.2, Red Cell Distribution Width 16.4 H, Anion Gap 9 Vital Signs Date Time Temp Pulse Resp B/P (MAP) Pulse Ox O2 Delivery O2 Flow Rate FiO2 09/19/18 14:00 96.9 63 17 130/63 (85) 93 I&O- Last 24 Hours up to 6 AM 09/19/18 06:00 Intake Total 980 ml Output Total 870 ml Balance 110 ml JYOTSNA SRINIVASAN MD Sep 19, 2018 15:09
[2018-09-19] MEDS: ATORVASTATIN 20 MG TAB PO SCH (21:28)
[2018-09-20] VITALS (12 sets, daily range): BP systolic 118–157; BP diastolic 60–74
[2018-09-20 06:01] LABS: INR 1.93; PROTHROMBIN TIME 22.4 SECONDS (12.1-14.4)
[2018-09-20 06:30] LABS: ALBUMIN 2.6 GM/DL (3.2-5.2); ALT/SGPT 472 U/L (12-78); BILIRUBIN,DIRECT 0.6 MG/DL (0.0-0.2); BILIRUBIN,TOTAL 1.1 MG/DL (0.2-1.0); BLOOD UREA NITROGEN 58 MG/DL (7-18); CALCIUM LEVEL 8.1 MG/DL (8.8-10.2); CARBON DIOXIDE LEVEL 31 MEQ/L (21-32); CHLORIDE LEVEL 102 MEQ/L (98-107); CREATININE FOR GFR 2.84 MG/DL (0.70-1.30); GLOMERULAR FILTRATION RATE 23.2 (>42); GLUCOSE, FASTING 199 MG/DL (70-100); LDH LACTATE DEHYDROGENASE 229 U/L (87-241); MAGNESIUM LEVEL 1.9 MG/DL (1.8-2.4); PHOSPHORUS LEVEL 2.3 MG/DL (2.5-4.9); POTASSIUM SERUM 3.7 MEQ/L (3.5-5.1); SODIUM LEVEL 140 MEQ/L (136-145); TOTAL PROTEIN 6.2 GM/DL (6.4-8.2)
[2018-09-20 06:55] LABS: HEMATOCRIT 25.8 % (42.0-52.0); HEMOGLOBIN 8.2 g/dl (13.5-17.5); MEAN CORPUSCULAR HEMOGLOBIN 29.5 pg (27.0-33.0); MEAN CORPUSCULAR HGB CONC 31.8 g/dl (32.0-36.5); MEAN CORPUSCULAR VOLUME 92.8 fl (80.0-96.0); RED BLOOD COUNT 2.78 10^6/uL (4.30-6.10); WHITE BLOOD COUNT 5.1 10^3/uL (4.0-10.0)
[2018-09-20 06:56] LABS: PLATELET COUNT, AUTOMATED 26 10^3/uL (150-450)
[2018-09-20] MEDS: HumaLOG INSULIN (NovoLOG) PER UNIT SC SCH ×5 (07:30→21:00)
[2018-09-20 08:57] LABS: FREE THYROXINE INDEX 2.2 % (1.4-3.8); GAMMA GLUTAMYLTRANSPEPTIDASE 65 U/L (15-85); T UPTAKE 34 % (33-40); THYROXINE (T4) 6.5 UG/DL (4.5-12.0)
[2018-09-20] MEDS: TORSEMIDE 20 MG TAB PO SCH ×2 (09:00→17:28)
[2018-09-20] MEDS: LEVEMIR (INSULIN DETEMIR) 1 UNITS/0.01ML SC SCH ×2 (09:38→22:17)
[2018-09-20] MEDS: SPIRONOLACTONE 25 MG TAB PO SCH (09:39)
[2018-09-20] MEDS: CARVedilol 12.5 MG TAB PO SCH ×2 (09:39→20:11)
[2018-09-20] MEDS: ASPIRIN 81 MG ENTERIC TAB PO SCH (09:39)
[2018-09-20] MEDS: ISOSORBIDE MON. (IMDUR) 60 MG XR TAB PO SCH ×2 (09:40→20:10)
[2018-09-20] MEDS: **hydrALAZINE HCL** 25 MG TAB PO SCH ×2 (09:41→20:11)
[2018-09-20 10:34] LABS: PTH INTACT 226.5 PG/ML (18.5-88.0)
[2018-09-20 10:44] LABS: HEPATITIS B SURFACE ANTIGEN NEGATIVE (NEGATIVE)
--- NOTE | 2018-09-20 10:45 | REP ---
RIGHT UPPER QUADRANT ULTRASOUND: Real-time sonographic evaluation of the right upper quadrant performed. Gallbladder demonstrates sludge and stones with no significant wall thickening. There is no intrahepatic or extrahepatic biliary dilatation, common bile duct measuring 4 mm in maximum diameter. Liver appears mildly enlarged with no mass. Pancreas is not well seen due to overlying bowel gas but demonstrates no gross abnormality. Right kidney demonstrates cortical thinning with normal length 12.5 cm. There is no hydronephrosis. There is no free fluid. IMPRESSION: Sludge and stones seen in the gallbladder without evidence of significant gallbladder wall thickening, pericholecystic fluid or biliary dilatation. There is mild hepatomegaly and possible mild diffuse fibrofatty infiltration but no mass. Electronically Signed by Thierry Foster MD 09/20/2018 02:45 P
--- NOTE | 2018-09-20 11:05 | IPN ---
DATE OF SERVICE: 09/19/2018 SUBJECTIVE: Patient seen and examined this morning at the bedside. Denies any overnight issues. Says his breathing is very comfortable and he has been walking around without any dyspnea on exertion. He does complain of muscle cramping. I discussed with him his worsening thrombocytopenia. Intake yesterday was 1100. Urine output yesterday was 1445. Weight on the bed scale is not recorded today. Negative 345 mL. Temperature 97.5, pulse 62, respiratory rate 16, blood pressure 150/70, saturating 94% on room air. General: Patient is seen sitting up at the edge of the bed, legs dangling, awake, alert, oriented, comfortable, no acute distress. Extraocular muscles are intact. His tongue is moist. Neck is supple. Jugular veins are not elevated. Heart sounds S1, S2 regular rate. No edema in the lower extremity. Lungs are clear to auscultation bilaterally. No crackle or rale. Abdomen is soft, nontender. There are bowel sounds. Neurologic: He is oriented, interactive and appropriate. Skin: Normal turgor and temperature. LABS: White count 4.5, hemoglobin 8.3, platelets 24. Sodium 139, potassium 3.1, bicarbonate 31, magnesium 1.9, transferrin saturation 12%. LABS: Hemoglobin 8.3, platelet 24, transferrin saturation 12%, sodium 139, potassium 3.1, magnesium 1.9. INPATIENT MEDICATIONS: Reviewed by myself and patient's Plavix is held. His spironolactone is increased to 25 mg daily. He received a dose of potassium 40 mEq by mouth times one. Remainder of medications are unchanged from prior PROBLEMS: 1. Chronic kidney disease (CKD) stage 4 status post episode of superimposed acute kidney injury which was related to decompensated systolic congestive heart failure and accompanying diuresis. Renal function has returned to his usual baseline and he continues on combination diuretics which he has been tolerating. 2. Systolic congestive heart failure status post recent exacerbation now with improvement in volume status. He is on torsemide 20 mg by mouth daily and his spironolactone has been increased to 25 mg daily in view of hypokalemia. He is not a candidate for angiotensin converting enzyme (SHANTHI) or angiotensin receptor blockers (ARBs). He continues on carvedilol and hydralazine and isosorbide, and he continues on oral fluid restriction. Monitoring of intake and output and daily weight. 3. Severe thrombocytopenia. Platelet count is down to 24. I have discussed with the primary team. They have sent workup. His Plavix is on hold. He needs fistula creation in view of his advanced chronic kidney disease and accompanying systolic congestive heart failure. However right now he is not appropriate for any surgical intervention due to thrombocytopenia. The patient denies any prior known history of thrombocytopenia. 4. Hypertension. Blood pressures are acceptably controlled and I am making no changes. His spironolactone was increased. 5. Hypokalemia due to loop diuretic. His potassium sparing diuretic is increased. He received a dose of oral potassium today. His magnesium level is acceptable. 6. Anemia related to chronic renal failure and iron deficiency. He previously did refuse the iron sucrose infusion. I have ordered it again for tomorrow and I will discuss the iron deficiency with the patient tomorrow at bedside prior to the iron infusion. We will also start him on Aranesp once he has received iron supplementation.
[2018-09-20 11:12] LABS: HEPATITIS B CORE ANTIBODY IGM NEGATIVE (NEGATIVE); HEPATITIS C VIRUS ABY INDEX 0.1 INDEX (<0.8)
[2018-09-20 11:13] LABS: HEPATITIS A ANTIBODY IGM NEGATIVE (NEGATIVE)
[2018-09-20] MEDS ORDERED: IRON SUCROSE 25 MG in NS 50 ML IV ONE (11:45)
[2018-09-20] MEDS ORDERED: IRON SUCROSE 275 MG in NS 250 ML IV ONE (13:00)
[2018-09-20] MEDS ORDERED: IRON SUCROSE 100MG 5ML VIAL (J1756 PER 1MG) IV ONE (13:00)
--- NOTE | 2018-09-20 18:37 | IPNPDOC ---
Text Note Date of Service The patient was seen on 09/20/18. NOTE The patient is seen and examined. No acute events overnight. Reported to be comfortable. Denies any shortness of breath, chest pain, pressure or discomfort. PHYSICAL EXAMINATION: GENERAL: The patient is alert, comfortable and in no acute distress. HEENT: Normocephalic, atraumatic. PULMONARY: Bilaterally clear. CARDIAC: Regular. S1, S2. ABDOMEN: Soft, nontender. Positive bowel sounds. EXTREMITIES: No edema in bilateral lower extremities. ASSESSMENT AND PLAN: This is a 78-year-old male patient with underlying medical history of chronic kidney disease stage IV, atrial fibrillation with rapid ventricular response, cardiogenic shock with myocardial infarction, coronary artery disease with bare metal stent in July 2014, coronary artery bypass graft (CABG) in October 2013, AICD, history of congestive heart failure (CHF), ejection fraction of 20 to 25%, peripheral vascular disease, type 2 diabetes, hypertension, who was treated at [facility] with acute congestive heart failure (CHF) exacerbation, was being actively diuresed by the patient's retail pharmacy technician, but subsequently was transferred to [facility] for acute on chronic renal failure. 1. Acute on chronic renal failure. Possibly secondary to aggressive diuresis. Nephrology consulted. Patient's kidney function is returning to baseline. Restarted back on diuretics. Avoid nephrotoxic agents. Avoid fluid overload given the patient has severe congestive heart failure (CHF) at baseline with systolic dysfunction. 2. Congestive heart failure (CHF) with ejection fraction of 20 to 25% with systolic dysfunction. Individual Small Group Instructor has restarted diuretic, including torsemide 20mg BID and spironolactone 25mg daily. We will monitor kidney function and monitor electrolytes. Continue beta cynthia, statin, aspirin. Holding wdgrpoblrwe-xanbkhbovl-xbfyhi (SHANTHI) inhibitor given elevated creatinine. Further recommendations as per nephrology. hold Plavix given severe thrombocytopenia. c/w asa 3. Hypertension. Continue blood pressure medication with Coreg, increased hydr alazine, Imdur increase, torsemide, spironolactone. 4. Coronary arterial disease. Continue aspirin, statin, Coreg, spironolactone, hydralazine, Imdur, and torsemide. Monitor blood pressure. Echo has been ordered. temporary hold Plavix given thrombocytopenia 5. Atrial fibrillation. Continue Coreg. 6. Severe thrombocytopenia. Not a candidate for anticoagulation at this point given bleeding risk. likely 2/2 cirrhosis 7. cirrhosis with coagulopathy , denied ETOH. US liver, DC acetaminophen. hepatitis neg, VADNA, ANCA, Anti smooth muscle, anti mitochondria, thyroid profile, ceruloplasmin 8. Diabetes. Basal bolus insulin. Basal insulin dosage has been decreased given renal insufficiency. 9. Peripheral vascular disease. Continue aspirin and statin. 10. Deep vein thrombosis (DVT) prophylaxis. Thromboembolic compression stockings (TEDS) and sequentials. Avoid anticoagulation given severe thrombocytopenia. We will monitor clinically. DISPOSITION: Physical therapy (PT) and occupational therapy (OT). Nephrology for further recommendations. Likely discharge in the next 24 to 48 hours pending PT. VS,Fishbone, I+O VS, Fishbone, I+O Laboratory Tests 09/20/18 05:28 09/20/18 06:35 Red Blood Count 2.78 L, Mean Corpuscular Volume 92.8, Mean Corpuscular Hemoglobin 29.5, Mean Corpuscular Hemoglobin Concent 31.8 L, Red Cell Distribution Width 16.6 H Vital Signs Date Time Temp Pulse Resp B/P (MAP) Pulse Ox O2 Delivery O2 Flow Rate FiO2 09/20/18 17:00 97.2 65 20 140/67 (91) 95 I&O- Last 24 Hours up to 6 AM 09/20/18 06:00 Intake Total 1290 ml Output Total 1050 ml Balance 240 ml JYOTSNA SRINIVASAN MD Sep 20, 2018 18:37
[2018-09-20] MEDS: ATORVASTATIN 20 MG TAB PO SCH (20:10)
[2018-09-21] VITALS (7 sets, daily range): BP systolic 122–160; BP diastolic 58–81
--- NOTE | 2018-09-21 05:42 | IPN ---
DATE: 09/20/2018 SUBJECTIVE: The patient is seen and examined this morning at the bedside, denies any overnight events or issues. Denies any shortness of breath or dyspnea on exertion, has been voiding without problems. Significant thrombocytopenia persists and work up is in progress. VITAL SIGNS: Temperature 97.1, pulse 68, respiratory rate 20, blood pressure 136/66, saturating 96% on room air. Intake yesterday was 1140. Urine output yesterday was 800. Weight in the bed scale is 70.1 kg. GENERAL: The patient is seen lying in bed, awake, alert, oriented, comfortable in no acute distress. Tongue is moist. Neck is supple. Jugular veins are not elevated. CARDIAC: S1, S2, regular rate. LUNGS: Clear to auscultation bilaterally. No crackles or rales. ABDOMEN: Soft and nontender. There are bowel sounds. EXTREMITIES: Negative for edema. SKIN: Normal turgor and temperature. LABORATORY: White count 5.1, hemoglobin 8.2, platelets 26, sodium 140, potassium 3.7, PTH 226. IMAGING: Liver ultrasound is noted with some fibrofatty infiltration of the liver. INPATIENT MEDICATION: I increased the torsemide to 20 mg by mouth twice a day. He also received iron infusion today. His Imdur was increased by temperature primary team. Remainder of medications are unchanged from prior. PROBLEMS: 1. Chronic kidney disease (CKD) stage IV, status post episode of superimposed acute kidney injury, which was related to decompensated Systolic congestive heart failure and accompanying diuresis. Renal function has recovered to his usual baseline and he continues on combination torsemide and spironolactone, which he has been tolerating well. 2. Systolic congestive heart failure, status post recent exacerbation now with improvement in volume status. I have increased the torsemide to 20 mg by mouth twice a day and he continues on spironolactone 25 mg daily and continues on oral fluid restriction, carvedilol, hydralazine and isosorbide. Continue monitoring of intake and output and daily weight, not suitable for SHANTHI or ARB. 3. Severe thrombocytopenia. Platelet count is around 25,000 the past couple of days. Primary team has sent the work up. His Plavix is on hold. His platelet count appears to be low even prior to this admission. 4. Anemia related to iron deficiency and chronic renal failure. He received iron infusion today. He is for Deligic tomorrow. 5. Hypertension. I have increased the Torsemide and primary team has increased the Imdur. There are no other changes made to his remainder antihypertensives. He has not suitable for SHANTHI or ARB.
[2018-09-21 06:02] LABS: HEMATOCRIT 23.7 % (42.0-52.0); HEMOGLOBIN 7.6 g/dl (13.5-17.5); MEAN CORPUSCULAR HGB CONC 32.1 g/dl (32.0-36.5); MEAN CORPUSCULAR VOLUME 90.5 fl (80.0-96.0); RED BLOOD COUNT 2.62 10^6/uL (4.30-6.10); WHITE BLOOD COUNT 4.5 10^3/uL (4.0-10.0)
[2018-09-21 06:04] LABS: PLATELET COUNT, AUTOMATED 27 10^3/uL (150-450)
[2018-09-21 06:14] LABS: INR 1.79; PROTHROMBIN TIME 21.2 SECONDS (12.1-14.4)
[2018-09-21 06:34] LABS: ALBUMIN 2.6 GM/DL (3.2-5.2); BILIRUBIN,DIRECT 0.6 MG/DL (0.0-0.2); BILIRUBIN,TOTAL 1.2 MG/DL (0.2-1.0); CALCIUM LEVEL 8.4 MG/DL (8.8-10.2); CREATININE FOR GFR 2.88 MG/DL (0.70-1.30); GLOMERULAR FILTRATION RATE 22.8 (>42); MAGNESIUM LEVEL 1.9 MG/DL (1.8-2.4); PHOSPHORUS LEVEL 2.6 MG/DL (2.5-4.9); POTASSIUM SERUM 3.9 MEQ/L (3.5-5.1); TOTAL PROTEIN 6.3 GM/DL (6.4-8.2)
[2018-09-21] MEDS: SPIRONOLACTONE 25 MG TAB PO SCH (07:53)
[2018-09-21] MEDS: TORSEMIDE 20 MG TAB PO SCH ×2 (07:54→17:39)
[2018-09-21] MEDS: ASPIRIN 81 MG ENTERIC TAB PO SCH (07:54)
[2018-09-21] MEDS: **hydrALAZINE HCL** 25 MG TAB PO SCH ×2 (07:54→20:58)
[2018-09-21] MEDS: CARVedilol 12.5 MG TAB PO SCH ×2 (07:54→20:57)
[2018-09-21] MEDS: ISOSORBIDE MON. (IMDUR) 60 MG XR TAB PO SCH ×2 (07:55→20:58)
[2018-09-21] MEDS: HumaLOG INSULIN (NovoLOG) PER UNIT SC SCH ×4 (07:55→21:00)
[2018-09-21] MEDS: LEVEMIR (INSULIN DETEMIR) 1 UNITS/0.01ML SC SCH ×2 (07:55→20:58)
[2018-09-21 08:50] LABS: HAPTOGLOBIN 80 mg/dL (34-200)
[2018-09-21] MEDS ORDERED: FUROSEMIDE 40 MG/4 ML VIAL (J1940) IV ONE (09:00)
[2018-09-21] MEDS ORDERED: DARBEPOETIN 100 MCG/0.5 ML *NON-DIALYSIS* SYRINGE (J0881) SC SCH (09:00)
[2018-09-21] MEDS: PANTOPRAZOLE 40MG INJ (PROTONIX) (C9113) IV SCH ×2 (10:37→20:54)
[2018-09-21 10:40] LABS: FOLATE 17.1 NG/ML (>5.4)
[2018-09-21 14:12] LABS: CERULOPLASMIN 25.6 mg/dL (16.0-31.0)
--- NOTE | 2018-09-21 17:20 | IPN ---
DATE: 09/21/2018 SUBJECTIVE: Patient seen and examined this morning at the bedside. He complains that after he had his morning medications that he felt not his usual self, "the floor looked like it was moving." He also complains of generalized fatigue and lack of energy. He is very concerned about his anemia and liver tests. He denies any shortness of breath. Hemoglobin is 7.6, and he is pending 1 unit transfusion. VITAL SIGNS: Temperature 98.3, pulse 68, respiratory rate 20, blood pressure 126/58, saturating 91-94% on room air. Intake yesterday was 1500. Urine output yesterday was 1 liter. Net positive 500. Weight in the bed scale today is 70.6 kg. GENERAL: Patient is seen sitting at the edge of the bed, legs dangling, awake, alert, oriented, elderly male in no acute distress. Pleasant and conversational. Tongue is moist. Neck is supple. Extraocular muscles are intact. His jugular veins are not elevated. CARDIAC: S1, S2, regular rate. No edema in the peripheries. LUNGS: Clear to auscultation. No crackles or rales. ABDOMEN: Soft and nontender. There are bowel sounds. SKIN: Normal turgor and temperature. LABORATORY DATA: White count 4.5, hemoglobin 7.6, platelets 27. Sodium 140, potassium 3.9, bicarbonate 31, BUN 58, creatinine 2.8, magnesium 1.9. INPATIENT MEDICATIONS: Reviewed by myself. I cut the hydralazine down to 50 mg by mouth twice a day. He received a first-time dose of Aranesp today. He also received a dose of intravenous (IV) Lasix 40 mg times one. His remainder of medications is unchanged from prior. PROBLEMS: 1. Chronic kidney disease (CKD), stage IV, status post episode of superimposed acute kidney injury related to floridly decompensated systolic congestive heart failure and subsequent diuresis. Renal function has recovered to his usual baseline, and he continues on combination diuretics, torsemide, and spironolactone, which he has been tolerating well. There is no urgent indication for dialysis initiation. He does need fistula creation at some point, however, presently unsuitable due to severe thrombocytopenia. 2. Combined systolic and diastolic heart failure. Ejection fraction of 20% with grade 2 diastolic dysfunction. Patient is presently on combination torsemide 20 mg by mouth twice a day and spironolactone 25 mg daily and is appropriately fluid restricting. His weights have been stable, and no change is being made to the diuretic regimen today. He continues on carvedilol, hydralazine, and isosorbide. 3. Severe thrombocytopenia, platelet count are 25,000 the past few days. Primary team has sent the workup. Plavix is on hold. Consider gastroenterology evaluation. 4. Severe anemia. Normocytic. Hemoglobin 7.6 today. He received a 300 mg Venofer infusion yesterday. He received a dose of Aranesp today, and he is also for 1 unit packed red blood cells today with a dose of Lasix. 5. Dyslipidemia. Patient is presently on a statin. Consider holding is liver function tests (LFTs) remain abnormal. Defer to primary team. 6. Hypertension. Blood pressures are reasonably controlled. I have slightly reduced the dose of hydralazine. Otherwise, continue current regimen.
[2018-09-21] MEDS: ATORVASTATIN 20 MG TAB PO SCH (20:58)
--- NOTE | 2018-09-21 22:12 | IPNPDOC ---
Text Note Date of Service The patient was seen on 09/21/18. NOTE The patient is seen and examined. Reported generalized weakness, found to be more anemia. Denied melena or diarrhea. Denies any shortness of breath, chest pain, pressure or discomfort. PHYSICAL EXAMINATION: GENERAL: The patient is alert, comfortable and in no acute distress. HEENT: Normocephalic, atraumatic. PULMONARY: Bilaterally clear. CARDIAC: Regular. S1, S2. ABDOMEN: Soft, nontender. Positive bowel sounds. EXTREMITIES: No edema in bilateral lower extremities. ASSESSMENT AND PLAN: This is a 78-year-old male patient with underlying medical history of chronic kidney disease stage IV, atrial fibrillation with rapid ventricular response, cardiogenic shock with myocardial infarction, coronary artery disease with bare metal stent in July 2014, coronary artery bypass graft (CABG) in October 2013, AICD, history of congestive heart failure (CHF), ejection fraction of 20 to 25%, peripheral vascular disease, type 2 diabetes, hypertension, who was treated at [facility] with acute congestive heart failure (CHF) exacerbation, was being actively diuresed by the patient's act english tutor, but subsequently was transferred to [facility] for acute on chronic renal failure. 1. Acute on chronic renal failure. Possibly secondary to aggressive diuresis. Nephrology consulted. Patient's kidney function is returning to baseline. Restarted back on diuretics. Avoid nephrotoxic agents. Avoid fluid overload given the patient has severe congestive heart failure (CHF) at baseline with systolic dysfunction. 2. Congestive heart failure (CHF) with ejection fraction of 20 to 25% with systolic dysfunction. Sieve Grader Tender has restarted diuretic, including torsemide 20mg BID and spironolactone 25mg daily. We will monitor kidney function and monitor electrolytes. Continue beta cynthia, statin, aspirin. Holding qusopkgggva-zyozomvjqu-rbdpls (SHANTHI) inhibitor given elevated creatinine. Further recommendations as per nephrology. hold Plavix given severe thrombocytopenia. c/w asa 3. Hypertension. Continue blood pressure medication with Coreg, hydralazine, Imdur increase, torsemide, spironolactone. 4. Coronary arterial disease. Continue aspirin, statin, Coreg, spironolactone, hydralazine, Imdur, and torsemide. Monitor blood pressure. Echo has been ordered. temporary hold Plavix given thrombocytopenia 5. Atrial fibrillation. Continue Coreg. 6. Severe thrombocytopenia. Not a candidate for anticoagulation at this point given bleeding risk. likely 2/2 cirrhosis 7. cirrhosis with coagulopathy , denied ETOH. US liver, DC acetaminophen. hepatitis neg, VANDA, ANCA, Anti smooth muscle, anti mitochondria, thyroid pro file, ceruloplasmin 8. worsening anemia, anemia of chronic disease vs GI bleed. Transfuse 1 Unit P RBC with lasix following. f/u hh, anemia workup, FOBT 9. Diabetes. Basal bolus insulin. Basal insulin dosage has been decreased given renal insufficiency. 10. Peripheral vascular disease. Continue aspirin and statin. 11. Deep vein thrombosis (DVT) prophylaxis. Thromboembolic compression stockings (TEDS) and sequentials. Avoid anticoagulation given severe thrombocytopenia. We will monitor clinically. DISPOSITION: Physical therapy (PT) and occupational therapy (OT). Nephrology for further recommendations. Likely discharge in the next 24 to 48 hours pending PT and improved anemia VS,Fishbone, I+O VS, Fishbone, I+O Laboratory Tests 09/21/18 05:31 Red Blood Count 2.62 L, Mean Corpuscular Volume 90.5, Mean Corpuscular Hemoglobin 29.0, Mean Corpuscular Hemoglobin Concent 32.1, Red Cell Distribution Width 16.8 H Vital Signs Date Time Temp Pulse Resp B/P (MAP) Pulse Ox O2 Delivery O2 Flow Rate FiO2 09/21/18 20:57 72 148/78 09/21/18 18:00 97.6 16 94 I&O- Last 24 Hours up to 6 AM 09/21/18 06:00 Intake Total 1526 ml Output Total 1350 ml Balance 176 ml JYOTSNA SRINIVASAN MD Sep 21, 2018 22:12
[2018-09-22 00:07] LABS: ANTI-MITOCHONDRIAL ANTIBODY <20.0 Units (0.0-20.0); ANTI-SMOOTH MUSCLE ANTIBODY 18 Units (0-19); ANTINUCLEAR ANTIBODIES DIRECT Negative (Negative)
[2018-09-22 02:00] VITALS: BP 142/67
[2018-09-22 05:57] LABS: HEMATOCRIT 28.3 % (42.0-52.0); MEAN CORPUSCULAR HEMOGLOBIN 28.8 pg (27.0-33.0); MEAN CORPUSCULAR HGB CONC 31.8 g/dl (32.0-36.5); MEAN CORPUSCULAR VOLUME 90.7 fl (80.0-96.0); PLATELET COUNT, AUTOMATED 32 10^3/uL (150-450); RED BLOOD COUNT 3.12 10^6/uL (4.30-6.10); WHITE BLOOD COUNT 4.5 10^3/uL (4.0-10.0)
[2018-09-22 06:00] VITALS: BP 148/81
[2018-09-22 06:06] LABS: INR 1.59; PROTHROMBIN TIME 19.2 SECONDS (12.1-14.4)
[2018-09-22 06:18] LABS: ALBUMIN 2.9 GM/DL (3.2-5.2); BILIRUBIN,DIRECT 0.8 MG/DL (0.0-0.2); BILIRUBIN,TOTAL 1.5 MG/DL (0.2-1.0); CALCIUM LEVEL 8.4 MG/DL (8.8-10.2); CREATININE FOR GFR 2.89 MG/DL (0.70-1.30); GLOMERULAR FILTRATION RATE 22.7 (>42); MAGNESIUM LEVEL 1.9 MG/DL (1.8-2.4); PHOSPHORUS LEVEL 3.1 MG/DL (2.5-4.9); POTASSIUM SERUM 3.6 MEQ/L (3.5-5.1)
[2018-09-22] MEDS: MIRALAX *UNIT DOSE* 17GM PACKET PO SCH (09:00)
[2018-09-22] MEDS ORDERED: CALCITRIOL 0.25 MCG CAP (S0169) PO SCH (09:00)
[2018-09-22] MEDS: TORSEMIDE 20 MG TAB PO SCH ×2 (09:57→17:07)
[2018-09-22] MEDS: LEVEMIR (INSULIN DETEMIR) 1 UNITS/0.01ML SC SCH ×2 (09:57→21:45)
[2018-09-22] MEDS: SPIRONOLACTONE 25 MG TAB PO SCH (09:57)
[2018-09-22] MEDS: PANTOPRAZOLE 40MG INJ (PROTONIX) (C9113) IV SCH ×2 (09:57→21:43)
[2018-09-22] MEDS: HumaLOG INSULIN (NovoLOG) PER UNIT SC SCH ×4 (09:57→21:36)
[2018-09-22] MEDS: ASPIRIN 81 MG ENTERIC TAB PO SCH (09:58)
[2018-09-22] MEDS: CARVedilol 12.5 MG TAB PO SCH ×2 (09:58→21:44)
[2018-09-22] MEDS: ISOSORBIDE MON. (IMDUR) 60 MG XR TAB PO SCH ×2 (09:58→21:44)
[2018-09-22] MEDS: **hydrALAZINE HCL** 25 MG TAB PO SCH ×2 (09:58→21:43)
[2018-09-22 10:00] VITALS: BP 160/77
[2018-09-22] MEDS: FERROUS GLUCONATE 324 MG TAB PO SCH (10:00)
[2018-09-22 14:00] VITALS: BP 168/83
[2018-09-22 18:00] VITALS: BP 160/74
--- NOTE | 2018-09-22 21:02 | IPNPDOC ---
Text Note Date of Service The patient was seen on 09/22/18. NOTE The patient is seen and examined. reported back to baseline. Denied melena or diarrhea. Denies any shortness of breath, chest pain, pressure or discomfort. PHYSICAL EXAMINATION: GENERAL: The patient is alert, comfortable and in no acute distress. HEENT: Normocephalic, atraumatic. PULMONARY: Bilaterally clear. CARDIAC: Regular. S1, S2. ABDOMEN: Soft, nontender. Positive bowel sounds. EXTREMITIES: No edema in bilateral lower extremities. ASSESSMENT AND PLAN: This is a 78-year-old male patient with underlying medical history of chronic kidney disease stage IV, atrial fibrillation with rapid ventricular response, cardiogenic shock with myocardial infarction, coronary artery disease with bare metal stent in July 2014, coronary artery bypass graft (CABG) in October 2013, AICD, history of congestive heart failure (CHF), ejection fraction of 20 to 25%, peripheral vascular disease, type 2 diabetes, hypertension, who was treated at [facility] with acute congestive heart failure (CHF) exacerbation, was being actively diuresed by the patient's fruit or nut farm worker, but subsequently was transferred to [facility] for acute on chronic renal failure. 1. Acute on chronic renal failure. Possibly secondary to aggressive diuresis. Nephrology consulted. Patient's kidney function is returning to baseline. Restarted back on diuretics. Avoid nephrotoxic agents. Avoid fluid overload given the patient has severe congestive heart failure (CHF) at baseline with systolic dysfunction. 2. Congestive heart failure (CHF) with ejection fraction of 20 to 25% with systolic dysfunction. Lozenge Maker Helper has restarted diuretic, including torsemide 20mg BID and spironolactone 25mg daily. We will monitor kidney function and monitor electrolytes. Continue beta cynthia, statin, aspirin. Holding nodkuknefmr-fwbgmpgxyt-bcnqym (SHANTHI) inhibitor given elevated creatinine. Further recommendations as per nephrology. hold Plavix given severe thrombocytopenia. c/w asa 3. Hypertension. Continue blood pressure medication with Coreg, hydralazine, Imdur increase, torsemide, spironolactone. 4. Coronary arterial disease. Continue aspirin, statin, Coreg, spironolactone, hydralazine, Imdur, and torsemide. Monitor blood pressure. Echo has been ordered. temporary hold Plavix given thrombocytopenia 5. Atrial fibrillation. Continue Coreg. 6. Severe thrombocytopenia. Not a candidate for anticoagulation at this point given bleeding risk. likely 2/2 cirrhosis 7. cirrhosis with coagulopathy , denied ETOH. US liver, DC acetaminophen. hepa titis neg, VANDA, ANCA, Anti smooth muscle, anti mitochondria, thyroid profile, ceruloplasmin 8. worsening anemia, anemia of chronic disease vs GI bleed. Transfuse 1 Unit PRBC with lasix following. f/u hh, anemia workup, FOBT 9. Diabetes. Basal bolus insulin. Basal insulin dosage has been decreased given renal insufficiency. 10. Peripheral vascular disease. Continue aspirin and statin. 11. Deep vein thrombosis (DVT) prophylaxis. Thromboembolic compression stockings (TEDS) and sequentials. Avoid anticoagulation given severe thrombocytopenia. We will monitor clinically. DISPOSITION: Physical therapy (PT) and occupational therapy (OT). Nephrology for further recommendations. Likely discharge in the next 24 to 48 hours pending improved anemia VS,Vladimire, I+O VS, Vladimire, I+O Laboratory Tests 09/22/18 05:28 Red Blood Count 3.12 L, Mean Corpuscular Volume 90.7, Mean Corpuscular Hemoglobin 28.8, Mean Corpuscular Hemoglobin Concent 31.8 L, Red Cell Distribution Width 18.3 H Vital Signs Date Time Temp Pulse Resp B/P (MAP) Pulse Ox O2 Delivery O2 Flow Rate FiO2 09/22/18 18:00 97.7 70 18 160/74 (102) 95 I&O- Last 24 Hours up to 6 AM 09/22/18 06:00 Intake Total 1952 ml Output Total 3075 ml Balance -1123 ml JYOTSNA SRINIVASAN MD Sep 22, 2018 21:02
[2018-09-22] MEDS: SENOKOT S TAB PO SCH (21:44)
[2018-09-22] MEDS: ATORVASTATIN 20 MG TAB PO SCH (21:44)
[2018-09-22 22:00] VITALS: BP 164/77
[2018-09-23 06:00] VITALS: BP 130/70
[2018-09-23 06:14] LABS: HEMATOCRIT 27.1 % (42.0-52.0); HEMOGLOBIN 8.7 g/dl (13.5-17.5); MEAN CORPUSCULAR HEMOGLOBIN 28.6 pg (27.0-33.0); MEAN CORPUSCULAR HGB CONC 32.1 g/dl (32.0-36.5); MEAN CORPUSCULAR VOLUME 89.1 fl (80.0-96.0); RED BLOOD COUNT 3.04 10^6/uL (4.30-6.10); WHITE BLOOD COUNT 4.4 10^3/uL (4.0-10.0)
[2018-09-23 06:16] LABS: PLATELET COUNT, AUTOMATED 36 10^3/uL (150-450)
[2018-09-23 06:23] LABS: INR 1.56; PROTHROMBIN TIME 18.9 SECONDS (12.1-14.4)
[2018-09-23 06:57] LABS: ALBUMIN 2.8 GM/DL (3.2-5.2); BILIRUBIN,DIRECT 0.7 MG/DL (0.0-0.2); BILIRUBIN,TOTAL 1.4 MG/DL (0.2-1.0); CALCIUM LEVEL 8.5 MG/DL (8.8-10.2); CREATININE FOR GFR 2.88 MG/DL (0.70-1.30); GLOMERULAR FILTRATION RATE 22.8 (>42); MAGNESIUM LEVEL 1.9 MG/DL (1.8-2.4); PHOSPHORUS LEVEL 2.8 MG/DL (2.5-4.9); POTASSIUM SERUM 3.7 MEQ/L (3.5-5.1); TOTAL PROTEIN 6.7 GM/DL (6.4-8.2)
[2018-09-23] MEDS: HumaLOG INSULIN (NovoLOG) PER UNIT SC SCH ×2 (07:30→13:15)
[2018-09-23] MEDS: MIRALAX *UNIT DOSE* 17GM PACKET PO SCH (09:00)
[2018-09-23] MEDS: LEVEMIR (INSULIN DETEMIR) 1 UNITS/0.01ML SC SCH (09:00)
[2018-09-23 09:57] VITALS: BP 145/70
[2018-09-23 09:59] VITALS: BP 145/70
[2018-09-23] MEDS: TORSEMIDE 20 MG TAB PO SCH (09:59)
[2018-09-23] MEDS: **hydrALAZINE HCL** 25 MG TAB PO SCH (09:59)
[2018-09-23] MEDS: CARVedilol 12.5 MG TAB PO SCH (09:59)
[2018-09-23] MEDS: SENOKOT S TAB PO SCH (09:59)
[2018-09-23] MEDS: ASPIRIN 81 MG ENTERIC TAB PO SCH (09:59)
[2018-09-23] MEDS: ISOSORBIDE MON. (IMDUR) 60 MG XR TAB PO SCH (10:00)
[2018-09-23] MEDS: FERROUS GLUCONATE 324 MG TAB PO SCH (10:00)
[2018-09-23] MEDS: SPIRONOLACTONE 25 MG TAB PO SCH (10:00)
[2018-09-23] MEDS: PANTOPRAZOLE 40MG INJ (PROTONIX) (C9113) IV SCH (10:00)
--- NOTE | 2018-09-23 10:39 | IPN ---
DATE OF SERVICE: 09/22/2018 SUBJECTIVE: The patient seen and examined this morning at the bedside. Reports he is feeling much better today. Did not have any recurrent episode of dizziness. His hemoglobin has improved with the packed red blood cell transfusion, and he diuresed very nicely the past 24 hours. He is anxious to go home. VITAL SIGNS: Temperature 98.1, pulse 78, respiratory rate 18, blood pressure 148/81, saturating 93% to 95% on room air. INTAKE AND OUTPUT: Intake yesterday was 1800. Urine output yesterday was 2800. Net negative 1 liter. Weight in the bed scale today is 72.3 kg. GENERAL: The patient is seen lying in bed. Elderly male in no distress. Awake, alert, oriented times three. Extraocular muscles intact. Tongue is moist. Neck is supple. CARDIAC: S1, S2, regular rate. LUNGS: Clear to auscultation bilaterally. No crackles or rales. ABDOMEN: Soft and nontender. There are bowel sounds. EXTREMITIES: Show no edema, clubbing, or cyanosis. SKIN: Normal turgor and temperature. LABORATORIES: White count 4.5, hemoglobin 9.0, platelets 32. Sodium 139, potassium 3.6, magnesium 1.9. Stool occult blood negative. INPATIENT MEDICATIONS: Reviewed by me. I started him on ferrous gluconate 324 mg by mouth daily and calcitriol 0.25 mcg by mouth every other day. He has been started on Senokot per the primary team and MiraLAX. Remainder of medications are unchanged from prior. PROBLEMS: 1. Chronic kidney disease (CKD) stage IV. Renal function is at the patient's usual baseline. He did have a prior episode of acute kidney injury that has resolved. He is not suitable for angiotensin-converting enzyme (SHANTHI) inhibitor or angiotensin receptor cynthia (ARB). His electrolytes and volume status are acceptable. He can likely be discharged tomorrow on torsemide 40 mg in the morning and 20 mg in the afternoon and spironolactone 25 mg daily with the oral fluid restriction. He would need fistula creation at some point but not at present due to significant thrombocytopenia. 2. Systolic and diastolic congestive heart failure. Ejection fraction (EF) of 20% with grade 2 diastolic dysfunction. Presently on combination torsemide and spironolactone. Continue fluid restriction. He has been advised for 1.5 liter fluid intake and low-salt diet as an outpatient. He also continues on carvedilol, hydralazine, and isosorbide. 3. Severe thrombocytopenia, complicating his care. Plavix is held. He continues on low-dose aspirin. He will need further followup for this. There is no spontaneous bleeding. Followup can be as outpatient. 4. Normocytic anemia, status post 1 unit packed red blood cells, status post Venofer infusion, status post Aranesp. He will followup in the nephrology office for ongoing management of his anemia of chronic renal failure. His stool occult blood was negative. 5. Hypertension. Blood pressures are reasonably controlled. I made no changes today. DISPOSITION: The patient can likely be discharged in the coming 24 hours on torsemide 40 mg in the a.m. and 20 mg in the p.m. and spironolactone 25 mg daily. He will need to followup in the nephrology office within 1 week of discharge.
[2018-09-23] MEDS ORDERED: FERR32TA PO (12:08)
[2018-09-23] MEDS ORDERED: CALC1CAP31 PO (12:08)
[2018-09-23] MEDS ORDERED: ALDA25TA2 PO (12:08)
[2018-09-23] MEDS ORDERED: TOUJ1.2I SC (12:08)
[2018-09-23] MEDS ORDERED: TORS20TA2 PO (12:08)
[2018-09-23 14:00] VITALS: BP 154/72
--- NOTE | 2018-09-23 16:01 | DSES ---
DATE OF ADMISSION: 09/17/2018 DATE OF DISCHARGE: 09/23/18 PRIMARY CARE PROVIDER: Deni Lo MD USABILITY ARCHITECT: Dr. Caroline Barber FINAL DIAGNOSES: 1. Acute on chronic renal failure. 2. Congestive heart failure (CHF) with systolic dysfunction. 3. Hypertension. 4. Coronary arterial disease. 5. Atrial fibrillation. 6. Severe thrombocytopenia. 7. Cirrhosis with coagulopathy. 8. Worsening anemia of chronic disease. 9. Diabetes mellitus type 2. HISTORY OF PRESENT ILLNESS: This is a 78-year-old male with underlying medical history of atrial fibrillation, cardiogenic shock, coronary arterial disease with bare metal stents, coronary artery bypass graft (CABG), pacemaker placement and AICD placement, acute on chronic congestive heart failure (CHF), ejection fraction of 20 to 25%, peripheral vascular disease, diabetes mellitus type 2, hypertension. The patient was sent from [facility] to [facility]. Initially, at [facility] on 09/12/2018 with symptoms of chest pressure, relieved with nitroglycerin, complained of nausea and vomiting and hypoglycemia. He had taken orange juice with improvement of glucose. At [facility], the patient reported decreased appetite and nausea, was found to be fluid overloaded. The patient was admitted with chest pain and rule out cardiac event. Troponin is mildly elevated. The patient was diuresed. Hospital course was complicated with acute on chronic renal failure, given fluids and antibiotics. The patient was transferred to [facility] for nephrology consultation and dialysis. HOSPITAL COURSE: The patient was admitted to the hospital. Nephrology was consulted. IV fluids were initially given. Likely acute chronici renal failure secondary to aggressive diuresis. Avoid nephrotoxic agents. The patient's kidney function gradually improved. Echo was appreciated. Diuretic was restarted. Kidney function with strict input and output, daily weights. Given severe thrombocytopenia, the patient's Plavix was on hold given bleeding risk. Blood pressure medications and diuretics were adjusted. Workup for thrombocytopenia showed the patient has advanced cirrhosis with model for end-stage liver disease (MELD) score of 24. Workup for the cause of cirrhosis has been done. The patient denies alcohol. Hepatitis panel was negative. Acetaminophen was discontinued. The patient's liver function was monitored. Hospital course was complicated with worsening anemia. Fecal occult has been negative. Was found to be likely due to anemia of chronic disease. Physical therapy (PT) was done. THe patient is currently tolerating oral with stable kidney function. Passed physical therapy (PT) and ready for discharge for further care as an outpatient. Case was discussed with nephrology. VITAL SIGNS: Temperature 97.5, pulse 69, respirations 19, blood pressure 154/72, pulse oximetry 96% on room air. LABORATORY DATA: WBC 4.4, hemoglobin and hematocrit 8.7/27.1, platelets 36. Chemistry: Sodium 142, potassium 3.7, chloride 102, bicarbonate 23, BUN 62, creatinine 2.88, total bilirubin 1.4, INR 1.56. GENERAL: The patient is alert, comfortable and in no acute distress. HEENT: Normocephalic, atraumatic. PULMONARY: Bilaterally clear. CARDIAC: Regular S1, S2. ABDOMEN: Soft, nontender. Positive bowel sounds. EXTREMITIES: No clubbing, cyanosis or edema. DISCHARGE MEDICATIONS: - calcitriol 0.25 mcg by mouth every other day - ferrous gluconate 324 mg by mouth daily - spironolactone 25 mg by mouth daily - torsemide 20 mg by mouth twice a day - acetaminophen 650 mg by mouth every 4 hours as needed - aspirin 81 mg by mouth daily - Lipitor 20 mg by mouth at night - Coreg 25 mg by mouth twice a day - hydralazine 50 mg by mouth twice a day - isosorbide mononitrate 30 mg by mouth twice a day - sublingual nitroglycerin 0.4 mg sublingually as needed - Tramadol 50 mg by mouth daily as needed - Toujeo has been decreased to 15 units subcutaneously at night DISCHARGE INSTRUCTIONS: Please see primary care provider in 7 days. Fall precautions. Please see cardiology in 7 days. Please see sales representative graphic art in 10 days. Check complete blood count (CBC), basic metabolic panel (BMP), magnesium in 7 days. Further diuresis as per outpatient provider, may need improved blood pressure control and glucose control. Daily weights, call provider if weight gain greater than 3 pounds. Return if symptoms worsen. MTDD
--- NOTE | 2018-09-24 08:56 | IPN ---
DATE: 09/23/2018 SUBJECTIVE: Patient is seen and examined this morning at the bedside. He has discharge pending. He is looking forward to going home. He has no new complaints. VITAL SIGNS: Temperature 97.5, pulse 69, respiratory rate 19, blood pressure 154/72, saturating 96% on room air. Intake yesterday was 2.1 liters. Urine output yesterday was 2 liters was 2 liters and net positive 180 mL. Weight in the bed scale today is 71 kg. GENERAL: Patient is seen lying in bed flat, elderly male in no acute distress. Extraocular muscles are intact. Tongue is moist. Neck is supple and jugular veins are not elevated. CARDIAC: S1, S2 regular rate and rhythm, palpable peripheral pulses. LUNGS: Clear to auscultation bilaterally. No crackles or rales. ABDOMEN: Soft and nontender. There are bowel sounds. EXTREMITIES: Negative for edema, clubbing or cyanosis. SKIN: Normal turgor and temperature. NEUROLOGIC: Oriented times three. No focal deficit. LABS: White count 4.4, hemoglobin 8.7, platelets 36, sodium 142, potassium 2.7, bicarbonate 32, BUN 62, creatinine 2.8. INPATIENT MEDICATIONS: Reviewed my myself and no change from prior. PROBLEMS: 1. CKD stage 4, renal function is at the patient's usual baseline. He did have a prior episode of acute kidney injury that was related to decompensated heart failure and diuresis. His renal function has recovered to his historic baseline. He is not suitable for SHANTHI or [facility]B. His electrolytes and volume status are acceptable. He is being discharged on combination torsemide and spironolactone. I discussed with him again regarding the need for oral fluid restriction 1500 mL daily and monitoring of daily weights. Fistula creation could not be coordinated in the inpatient setting due to his significant thrombocytopenia. 2. Systolic and diagnostic congestive heart failure. Ejection fraction 2%, grade 2 diastolic dysfunction. Presently well compensated on Torsemide and spironolactone. Continue fluid restriction. He has been advised for 1500 mL fluid restriction and low salt diet as an outpatient. He continues on Carvedilol, hydralazine and isosorbide. 3. Severe thrombocytopenia complicating his care. Plavix was held. He will need further followup for this. 4. Normocytic anemia status-post 1 unit packed red blood cells, status-post Venofer infusion status-post Aranesp. He will followup in the [facility] office for further erythropoietin stimulating agents. His stool occult blood was negative. 5. Hypertension. Blood pressures are reasonably controlled and I made no changes. DISPOSITION: Patient is acceptable for discharge from a nephrology point of view and followup within one week.
== END 2018-09-23 16:26 | disposition home or self-care (01) | DRG 682 ==
LOC: M MSPAV 15:16
PROVIDERS: ADMIT Internal Medicine; ATTEND Hospitalist
PROC: 30233N1 Transfusion of Nonautologous Red Blood Cells into Peripheral Vein, Percutaneous Approach (ICD-10-PCS; principal; 2018-09-21)
DX: N17.9 Acute kidney failure, unspecified (principal); I50.43 Acute on chronic combined systolic (congestive) and diastolic (congestive) heart failure; I13.0 Hypertensive heart and chronic kidney disease with heart failure and stage 1 through stage 4 chronic kidney disease, or unspecified chronic kidney disease; D68.4 Acquired coagulation factor deficiency; E11.22 Type 2 diabetes mellitus with diabetic chronic kidney disease; N18.4 Chronic kidney disease, stage 4 (severe); E11.51 Type 2 diabetes mellitus with diabetic peripheral angiopathy without gangrene; I48.91 Unspecified atrial fibrillation; D69.6 Thrombocytopenia, unspecified; K74.60 Unspecified cirrhosis of liver; I25.10 Atherosclerotic heart disease of native coronary artery without angina pectoris; E83.42 Hypomagnesemia; D63.1 Anemia in chronic kidney disease; E79.0 Hyperuricemia without signs of inflammatory arthritis and tophaceous disease; D50.9 Iron deficiency anemia, unspecified; Z79.82 Long term (current) use of aspirin; Z79.02 Long term (current) use of antithrombotics/antiplatelets; Z79.4 Long term (current) use of insulin; Z95.5 Presence of coronary angioplasty implant and graft; Z95.810 Presence of automatic (implantable) cardiac defibrillator; Z98.1 Arthrodesis status

== ENCOUNTER → 2018-12-08 | Outpatient (REF) | payer MEDICARE, MEDICAID ==
[~2018-12-08] MED LIST changes: +ALDA25TA2 PO; +ALLO100T PO; -ASPI1TAB PO; +ASPI81TA26 PO; +CALC1CAP31 PO; +FERR32TA PO; +HYDR50TA PO; +ISOS30TA4 PO; +NITR4TASL SL; +PLAV1TAB2 PO; +SERT-141 PO; -SERT50TA PO; +TORS20TA2 PO; +TOUJ1.2I SC; +TRAM50TA2 PO; +TYLE325T5 PO
[2018-12-08 18:14] LABS: ALBUMIN 2.7 GM/DL (3.2-5.2); BILIRUBIN,DIRECT 0.6 MG/DL (0.0-0.2); TOTAL PROTEIN 6.7 GM/DL (6.4-8.2)
== END ==
LOC: M LAB REF 17:05
PROVIDERS: ATTEND Internal Medicine Nephrology
DX: K74.69 Other cirrhosis of liver (principal)